=== PATIENT | female | born 1975 | race Caucasian/White ===

== ENCOUNTER 2019-06-19 07:44 | Outpatient (CLI) | payer OTHER, SELFPAY ==
[2019-06-19 08:03] LABS: Hematocrit 37.3 % (37.0-47.0); Hemoglobin 12.8 g/dL (12.0-15.0); Mean Corpuscular HGB Conc 34.3 g/dl (32-36); Mean Corpuscular Volume 90.3 fl (80-100); Mean Platelet Volume 11.2 fl (7.4-10.4); Platelet Count Result 170 k/mm3 (150-375); Red Blood Count 4.13 M/mm3 (4.2-5.4); Red Cell Distribution Width 12.1 % (11.5-14.5); White Blood Count 3.7 K/mm3 (4.5-10.0)
[2019-06-19 08:10] LABS: Add Urine Microscopic? NO; Appearance Urine Clear (Clear); Bilirubin Urine Negative (Negative); Blood Urine Negative (Negative); Color Urine Straw (Yellow); Glucose Urine UA Negative (Negative); Ketones Urine Negative (Negative); Leukocyte Esterase Ur Negative LEU/UL (Negative); Nitrate Urine Negative (Negative); Protein Urine Negative (Negative); Specific Grav Ur 1.009 (1.001-1.035); Urobilinogen Urine Negative mg/dL (<2.0)
[2019-06-19 08:25] LABS: Alanine Aminotransferase 21 U/L (4-35); Alkaline Phosphatase 62 U/L (38-126); Aspartate Amino Transferase 27 U/L (14-36); Bilirubin,Total 0.7 mg/dL (0.2-1.3); Blood Urea Nitrogen 8 mg/dL (7-17); CRP < 0.5 mg/dL (<1.0); Calcium 8.5 mg/dL (8.4-10.2); Carbon Dioxide 25 mmol/L (22-30); Chloride 102 mmol/L (98-107); Estimated Glomerular Filt Rate > 60; Glucose 76 mg/dL (65-105); Potassium 3.6 mmol/L (3.4-5.0); Sodium 140 mmol/L (137-145)
== END 2019-06-19 07:45 | disposition home or self-care (01) ==
PROVIDERS: PCP Family Medicine; Visit Provider Internal Medicine
DX: M35.9 Systemic involvement of connective tissue, unspecified (principal)
CPT/HCPCS: 36415; 80053; 81003; 85027; 86140

== ENCOUNTER 2019-10-08 12:45 | Outpatient (CLI) | payer OTHER, SELFPAY ==
--- NOTE | ~2019-10-08 | XR_ITS ---
EXAMINATION: HAND-TOMAS ARTHRITIS 3+VIEWS DATE: 10/08/2019 12:56 INDICATION: Osteoarthritis with arthralgia at both hands. TECHNIQUE: Posteroanterior, lateral, and oblique views of the left and of the right hands as well as a ballcatchers view of both hands were obtained. COMPARISON: None. FINDINGS: Normal alignment at the bilateral hands and wrists. No fractures. Again seen is a relatively symmetri c pattern of osteoarthritis characterized by minimal to mild nonuniform joint space narrowing at mult iple interphalangeal joints at both hands with distal predominance. No erosions to suggest an inflamm atory arthritis. IMPRESSION: 1. No significant interval change in bilateral minimal to mild polyarticular interphalangeal osteoart hritis with distal predominance. Reviewed, dictated and finalized at location A. IMPRESSION: 1. No significant interval change in bilateral minimal to mild polyarticular in terphalangeal osteoarthritis with distal predominance.
== END 2019-10-08 12:46 | disposition home or self-care (01) ==
LOC: ANHIMG 12:48
PROVIDERS: PCP Family Medicine; Visit Provider Internal Medicine
DX: M19.042 Primary osteoarthritis, left hand (principal); M19.041 Primary osteoarthritis, right hand
CPT/HCPCS: 73130

== ENCOUNTER 2020-01-25 10:04 | Outpatient (CLI) | payer OTHER, SELFPAY ==
[2020-01-25 10:29] LABS: Hematocrit 39.1 % (37.0-47.0); Hemoglobin 13.5 g/dL (12.0-15.0); Mean Corpuscular HGB Conc 34.5 g/dl (32-36); Mean Corpuscular Hemoglobin 31.9 pg (26-34); Mean Corpuscular Volume 92.4 fl (80-100); Mean Platelet Volume 10.8 fl (7.4-10.4); Platelet Count Result 196 k/mm3 (150-375); Red Blood Count 4.23 M/mm3 (4.2-5.4); Red Cell Distribution Width 11.7 % (11.5-14.5)
[2020-01-25 10:32] LABS: Add Urine Microscopic? NO; Appearance Urine Clear (Clear); Bilirubin Urine Negative (Negative); Blood Urine Negative (Negative); Color Urine Straw (Yellow); Glucose Urine UA Negative (Negative); Ketones Urine Negative (Negative); Leukocyte Esterase Ur Negative LEU/UL (Negative); Nitrate Urine Negative (Negative); Protein Urine Negative (Negative); Specific Grav Ur 1.005 (1.001-1.035); Urobilinogen Urine Negative mg/dL (<2.0)
[2020-01-25 11:06] LABS: Erythrocyte Sedimentation Rate 15 mm/hr (0-20)
[2020-01-25 11:15] LABS: Alanine Aminotransferase 17 U/L (4-35); Alkaline Phosphatase 61 U/L (38-126); Anion Gap 8 mmol/L (8-16); Aspartate Amino Transferase 25 U/L (14-36); Blood Urea Nitrogen 9 mg/dL (7-17); CRP < 0.5 mg/dL (<1.0); Calcium 8.8 mg/dL (8.4-10.2); Carbon Dioxide 29 mmol/L (22-30); Chloride 103 mmol/L (98-107); Estimated Glomerular Filt Rate > 60; Glucose 84 mg/dL (65-105); Potassium 3.2 mmol/L (3.4-5.0); Sodium 140 mmol/L (137-145)
== END 2020-01-25 10:05 | disposition home or self-care (01) ==
LOC: ANHLAB 10:05
PROVIDERS: PCP Family Medicine; Visit Provider Internal Medicine
DX: M35.9 Systemic involvement of connective tissue, unspecified (principal); M19.90 Unspecified osteoarthritis, unspecified site
CPT/HCPCS: 36415; 80053; 81003; 85027; 85652; 86140

== ENCOUNTER 2020-03-07 08:51 | Outpatient (CLI) | payer OTHER, SELFPAY ==
[2020-03-07 09:20] LABS: Anion Gap 8 mmol/L (8-16); Blood Urea Nitrogen 9 mg/dL (7-17); Calcium 8.8 mg/dL (8.4-10.2); Carbon Dioxide 26 mmol/L (22-30); Chloride 104 mmol/L (98-107); Estimated Glomerular Filt Rate > 60; Glucose 113 mg/dL (65-105); Potassium 3.7 mmol/L (3.4-5.0); Sodium 138 mmol/L (137-145)
[2020-03-07 10:15] LABS: Free T4 Free Thyroxine 1.19 ng/mL (0.78-2.19)
== END 2020-03-07 08:52 | disposition home or self-care (01) ==
LOC: ANHLAB 08:52
PROVIDERS: PCP Family Medicine; Visit Provider Nurse Practitioner Family
DX: E03.9 Hypothyroidism, unspecified (principal); E87.6 Hypokalemia
CPT/HCPCS: 36415; 80048; 84439; 84443

== ENCOUNTER 2020-03-11 12:14 | Outpatient (CLI) | payer OTHER, SELFPAY ==
--- NOTE | ~2020-03-11 | MM_ITS ---
EXAMINATION: MM screening [facility] BI w jillian HISTORY: Screening mammogram TECHNIQUE: Craniocaudal and mediolateral oblique 3-D tomosynthesis images were obtained and synthetic 2-D images were generated. CAD analysis was submitted and interpreted. COMPARISON: 01/21/2019, 01/05/2018 BREAST PARENCHYMAL COMPOSITION: The breasts are extremely dense, which lowers the sensitivity of mamm ography. FINDINGS: There is no evidence of suspicious mass, calcification, or architectural distortion to sugg est malignancy in either breast. There has been no suspicious interval change. IMPRESSION: 1. No mammographic evidence of malignancy. 2. Recommend routine screening mammography in one year. BI-RADS Category 1: Negative Reviewed, dictated and finalized at location A. REMODELER
== END 2020-03-11 12:15 | disposition home or self-care (01) ==
LOC: ANHIMG 12:16
PROVIDERS: PCP Family Medicine; Visit Provider Obstetrics & Gynecology
DX: Z12.31 Encounter for screening mammogram for malignant neoplasm of breast (principal)
CPT/HCPCS: 77063; 77067

== ENCOUNTER 2020-07-31 16:10 | Outpatient (CLI) | payer OTHER, SELFPAY ==
[2020-07-31 16:58] LABS: Hematocrit 42.7 % (37.0-47.0); Hemoglobin 14.3 g/dL (12.0-15.0); Mean Corpuscular HGB Conc 33.5 g/dl (32-36); Mean Corpuscular Hemoglobin 31.2 pg (26-34); Mean Platelet Volume 11.1 fl (7.4-10.4); Platelet Count Result 223 k/mm3 (150-375); Red Blood Count 4.59 M/mm3 (4.2-5.4); Red Cell Distribution Width 12.1 % (11.5-14.5); White Blood Count 4.1 K/mm3 (4.5-10.0)
[2020-07-31 17:14] LABS: Alanine Aminotransferase 17 U/L (4-35); Albumin Level 4.4 g/dL (3.5-5.1); Alkaline Phosphatase 68 U/L (38-126); Anion Gap 5 mmol/L (8-16); Aspartate Amino Transferase 29 U/L (14-36); Bilirubin,Total 0.5 mg/dL (0.2-1.3); Blood Urea Nitrogen 6 mg/dL (7-17); CRP < 0.5 mg/dL (<1.0); Calcium 8.9 mg/dL (8.4-10.2); Carbon Dioxide 31 mmol/L (22-30); Chloride 107 mmol/L (98-107); Estimated Glomerular Filt Rate > 60; Glucose 94 mg/dL (65-105); Potassium 3.8 mmol/L (3.4-5.0); Sodium 143 mmol/L (137-145)
[2020-07-31 17:14] LABS: Add Urine Microscopic? YES; Appearance Urine Clear (Clear); Bilirubin Urine Negative (Negative); Blood Urine 3+ (Negative); Color Urine Straw (Yellow); Glucose Urine UA Negative (Negative); Ketones Urine Negative (Negative); Leukocyte Esterase Ur Negative LEU/UL (Negative); Mucus Urine Rare /lpf; Nitrate Urine Negative (Negative); Protein Urine Negative (Negative); RBC Urine 0-2 /hpf (0-2); Specific Grav Ur 1.005 (1.001-1.035); Squamous Epithelial Cell Urine Occasional /hpf (Few); Urobilinogen Urine Negative mg/dL (<2.0); WBC Urine 0-3 /hpf
[2020-07-31 17:40] LABS: Erythrocyte Sedimentation Rate 17 mm/hr (0-20)
== END 2020-07-31 16:11 | disposition home or self-care (01) ==
LOC: ANHLAB 16:14
PROVIDERS: PCP Nurse Practitioner Family; Visit Provider Internal Medicine
DX: M35.9 Systemic involvement of connective tissue, unspecified (principal); M19.90 Unspecified osteoarthritis, unspecified site
CPT/HCPCS: 36415; 80053; 81001; 85027; 85652; 86140

== ENCOUNTER 2020-08-21 09:28 | Outpatient (CLI) | payer OTHER, SELFPAY | END 2020-08-21 09:29 | disposition home or self-care (01) | PROVIDERS: PCP Nurse Practitioner Family; Visit Provider Nurse Practitioner Family | DX: E03.9 Hypothyroidism, unspecified (principal) | CPT/HCPCS: 36415; 84443 ==

== ENCOUNTER 2021-01-20 07:50 | Outpatient (CLI) | payer OTHER, SELFPAY ==
--- NOTE | ~2021-01-20 | XR_ITS ---
EXAMINATION: HAND-TOMAS ARTHRITIS 3+VIEWS DATE: 01/20/2021 08:22 INDICATION: Unspecified osteoarthritis of unspecified site TECHNIQUE: Posteroanterior, lateral, and oblique views of the left and of the right hands as well as a ballcatchers view of both hands were obtained. COMPARISON: 10/08/2019 FINDINGS: Normal alignment at the bilateral hands and wrists. No fractures. Again seen is a relatively symmetri c pattern of osteoarthritis characterized by minimal to mild nonuniform joint space narrowing at mult iple interphalangeal joints at both hands with distal predominance. No erosions to suggest an inflamm atory arthritis. Soft tissues are unremarkable. IMPRESSION: 1. No significant interval change in bilateral minimal to mild polyarticular interphalangeal osteoart hritis with distal predominance. Reviewed, dictated and finalized at location A. IMPRESSION: 1. No significant interval change in bilateral minimal to mild polyarticular in terphalangeal osteoarthritis with distal predominance.
== END 2021-01-20 07:51 | disposition home or self-care (01) ==
PROVIDERS: PCP Nurse Practitioner Family; Visit Provider Internal Medicine
DX: M19.90 Unspecified osteoarthritis, unspecified site (principal)
CPT/HCPCS: 73130

== ENCOUNTER 2021-04-19 10:27 | Outpatient (CLI) | payer OTHER, SELFPAY ==
--- NOTE | ~2021-04-19 | MM_ITS ---
EXAMINATION: MM screening [facility] BI w jillian HISTORY: Screening TECHNIQUE: Craniocaudal and mediolateral oblique 3-D tomosynthesis images were obtained and synthetic 2-D images were generated. CAD analysis was submitted and interpreted. COMPARISON: Comparison to multiple prior studies sequentially, with oldest reviewed study dated 01/05. BREAST PARENCHYMAL COMPOSITION: The breasts are extremely dense, which lowers the sensitivity of mamm ography. FINDINGS: There is no evidence of suspicious mass, calcification, or architectural distortion to sugg est malignancy in either breast. There has been no suspicious interval change. IMPRESSION: 1. No mammographic evidence of malignancy. 2. Recommend routine screening mammography in one year. BI-RADS Category 1: Negative Reviewed, dictated and finalized at location A. COMMUNICATIONS SPECIALIST
== END 2021-04-19 10:28 | disposition home or self-care (01) ==
LOC: ANHIMG 10:28
PROVIDERS: PCP Nurse Practitioner Family; Visit Provider Obstetrics & Gynecology
DX: Z12.31 Encounter for screening mammogram for malignant neoplasm of breast (principal)
CPT/HCPCS: 77063; 77067

== ENCOUNTER 2021-08-02 13:46 | Outpatient (CLI) | payer OTHER, SELFPAY ==
[2021-08-02 14:21] LABS: Hematocrit 38.3 % (37.0-47.0); Hemoglobin 13.3 g/dL (12.0-15.0); Mean Corpuscular HGB Conc 34.7 g/dl (32-36); Mean Corpuscular Volume 92.3 fl (80-100); Mean Platelet Volume 10.7 fl (7.4-10.4); Platelet Count Result 235 k/mm3 (150-375); Red Blood Count 4.15 M/mm3 (4.2-5.4); Red Cell Distribution Width 11.8 % (11.5-14.5); White Blood Count 5.2 K/mm3 (4.5-10.0)
[2021-08-02 14:26] LABS: Appearance Urine Clear (Clear); Bilirubin Urine Negative (Negative); Blood Urine 1+ (Negative); Color Urine Yellow (Yellow); Glucose Urine UA Negative (Negative); Ketones Urine Negative (Negative); Leukocyte Esterase Ur 1+ LEU/UL (Negative); Nitrate Urine Negative (Negative); Protein Urine Negative (Negative); Urobilinogen Urine 0.2 mg/dL (<2.0)
[2021-08-02 14:33] LABS: Bacteria Urine Trace /hpf; RBC Urine 0-2 /hpf (0-2); Squamous Epithelial Cell Urine Occasional /hpf (Few); WBC Urine 0-3 /hpf
[2021-08-02 14:34] LABS: Add Urine Microscopic? YES
[2021-08-02 14:40] LABS: Alanine Aminotransferase 18 U/L (4-35); Albumin Level 4.2 g/dL (3.5-5.1); Alkaline Phosphatase 72 U/L (38-126); Anion Gap 7 mmol/L (8-16); Aspartate Amino Transferase 30 U/L (14-36); Bilirubin,Total 0.6 mg/dL (0.2-1.3); Blood Urea Nitrogen 9 mg/dL (7-17); CRP < 0.5 mg/dL (<1.0); Calcium 8.6 mg/dL (8.4-10.2); Carbon Dioxide 27 mmol/L (22-30); Chloride 105 mmol/L (98-107); Estimated Glomerular Filt Rate > 60; Glucose 95 mg/dL (65-110); Potassium 3.7 mmol/L (3.4-5.0); Sodium 139 mmol/L (137-145)
[2021-08-02 15:09] LABS: Erythrocyte Sedimentation Rate 18 mm/hr (0-20)
== END 2021-08-02 13:47 | disposition home or self-care (01) ==
PROVIDERS: PCP Nurse Practitioner Family; Visit Provider Internal Medicine
DX: M35.9 Systemic involvement of connective tissue, unspecified (principal); M19.90 Unspecified osteoarthritis, unspecified site; E03.9 Hypothyroidism, unspecified
CPT/HCPCS: 36415; 80053; 81001; 84443; 85027; 85652; 86140

== ENCOUNTER 2022-01-29 06:58 | Outpatient (CLI) | payer OTHER, SELFPAY ==
[2022-01-29 07:19] LABS: Hematocrit 38.7 % (37.0-47.0); Hemoglobin 13.2 g/dL (12.0-15.0); Mean Corpuscular HGB Conc 34.1 g/dl (32-36); Mean Corpuscular Hemoglobin 31.4 pg (26-34); Mean Corpuscular Volume 92.1 fl (80-100); Mean Platelet Volume 10.5 fl (7.4-10.4); Platelet Count Result 206 k/mm3 (150-375); Red Cell Distribution Width 12.4 % (11.5-14.5); White Blood Count 5.8 K/mm3 (4.5-10.0)
[2022-01-29 07:35] LABS: Cholesterol 151 mg/dL (0-200); HDL Direct 54 mg/dL; Triglycerides 102 mg/dL (<150)
[2022-01-29 07:38] LABS: Alanine Aminotransferase 18 U/L (6-35); Albumin Level 3.8 g/dL (3.5-5.1); Alkaline Phosphatase 52 U/L (38-126); Anion Gap 7 mmol/L (8-16); Aspartate Amino Transferase 20 U/L (14-36); Bilirubin,Total 0.7 mg/dL (0.2-1.3); Blood Urea Nitrogen 8 mg/dL (7-17); CRP < 0.5 mg/dL (<1.0); Calcium 8.4 mg/dL (8.4-10.2); Carbon Dioxide 30 mmol/L (22-30); Chloride 103 mmol/L (98-107); Estimated Glomerular Filt Rate > 60; Glucose 94 mg/dL (65-110); Potassium 3.5 mmol/L (3.4-5.0); Sodium 140 mmol/L (137-145)
[2022-01-29 07:45] LABS: LDL Cholesterol Direct 83 mg/dL
[2022-01-29 07:49] LABS: Add Urine Microscopic? YES; Amorphous Sediment Urine Moderate; Appearance Urine Cloudy (Clear); Bilirubin Urine Negative (Negative); Blood Urine Negative (Negative); Color Urine Yellow (Yellow); Glucose Urine UA Negative (Negative); Ketones Urine Negative (Negative); Leukocyte Esterase Ur Negative LEU/UL (Negative); Nitrate Urine Negative (Negative); Protein Urine Negative (Negative); Squamous Epithelial Cell Urine Occasional /hpf (Few); Urobilinogen Urine Negative mg/dL (<2.0); WBC Urine 0-3 /hpf
[2022-01-29 07:49] LABS: Erythrocyte Sedimentation Rate 7 mm/hr (0-20)
== END 2022-01-29 06:59 | disposition home or self-care (01) ==
PROVIDERS: PCP Family Medicine; Referring Provider Internal Medicine; Visit Provider Nurse Practitioner Family
DX: Z13.220 Encounter for screening for lipoid disorders (principal); E03.9 Hypothyroidism, unspecified; M35.9 Systemic involvement of connective tissue, unspecified
CPT/HCPCS: 36415; 80053; 80061; 81001; 84443; 85027; 85652; 86140

== ENCOUNTER 2022-06-08 16:02 | Outpatient (CLI) | payer OTHER, SELFPAY ==
--- NOTE | ~2022-06-08 | MM_ITS ---
EXAMINATION: MM screening [facility] BI w jillian HISTORY: Screening mammogram TECHNIQUE: Craniocaudal and mediolateral oblique 3-D tomosynthesis images were obtained and synthetic 2-D images were generated. CAD analysis was submitted and interpreted. COMPARISON: 04/19/2021, 03/11/2020, 01/21/2019 bilateral screening mammogram examinations BREAST PARENCHYMAL COMPOSITION: The breasts are extremely dense, which lowers the sensitivity of mamm ography. FINDINGS: There is no evidence of suspicious mass, calcification, or architectural distortion to sugg est malignancy in either breast. There has been no suspicious interval change. IMPRESSION: 1. No mammographic evidence of malignancy. 2. Recommend routine screening mammography in one year. BI-RADS Category 1: Negative Reviewed, dictated and finalized at location A. ER PLUMBER
== END 2022-06-08 16:03 | disposition home or self-care (01) ==
PROVIDERS: PCP Family Medicine; Visit Provider Obstetrics & Gynecology
DX: Z12.31 Encounter for screening mammogram for malignant neoplasm of breast (principal)
CPT/HCPCS: 77063; 77067

== ENCOUNTER 2022-08-01 08:28 | Outpatient (CLI) | payer OTHER, SELFPAY ==
[2022-08-01 08:47] LABS: Hematocrit 40.3 % (37.0-47.0); Hemoglobin 13.6 g/dL (12.0-15.0); Mean Corpuscular HGB Conc 33.7 g/dl (32-36); Mean Corpuscular Hemoglobin 31.8 pg (26-34); Mean Corpuscular Volume 94.2 fl (80-100); Mean Platelet Volume 9.9 fl (7.4-10.4); Platelet Count Result 233 k/mm3 (150-375); Red Blood Count 4.28 M/mm3 (4.2-5.4); Red Cell Distribution Width 12.6 % (11.5-14.5); White Blood Count 3.5 K/mm3 (4.5-10.0)
[2022-08-01 09:02] LABS: Alanine Aminotransferase 24 U/L (6-35); Albumin Level 3.9 g/dL (3.5-5.1); Alkaline Phosphatase 69 U/L (38-126); Anion Gap 4 mmol/L (8-16); Aspartate Amino Transferase 30 U/L (14-36); Blood Urea Nitrogen 8 mg/dL (7-17); CRP < 0.5 mg/dL (<1.0); Calcium 8.3 mg/dL (8.4-10.2); Carbon Dioxide 28 mmol/L (22-30); Chloride 107 mmol/L (98-107); Estimated Glomerular Filt Rate > 60; Glucose 98 mg/dL (65-110); Potassium 3.9 mmol/L (3.4-5.0); Sodium 139 mmol/L (137-145)
[2022-08-01 09:21] LABS: Appearance Urine Clear (Clear); Bacteria Urine None Seen /hpf; Bilirubin Urine Negative (Negative); Blood Urine 2+ (Negative); Color Urine Yellow (Yellow); Glucose Urine UA Negative (Negative); Ketones Urine Negative (Negative); Leukocyte Esterase Ur Negative LEU/UL (Negative); Nitrate Urine Negative (Negative); Non Pathogenic Casts 0-2; Protein Urine Negative (Negative); RBC Urine 0-2 /hpf (0-2); Specific Grav Ur 1.011 (1.001-1.035); Squamous Epithelial Cell Urine None seen /hpf (Few); Urobilinogen Urine 0.2 mg/dL (<2.0); WBC Urine 0-5 /hpf; pH Urine 5.5 (5.0-9.0)
[2022-08-01 09:43] LABS: Erythrocyte Sedimentation Rate 17 mm/hr (0-20)
[2022-08-01 10:09] LABS: Add Urine Microscopic? YES
== END 2022-08-01 08:29 | disposition home or self-care (01) ==
PROVIDERS: PCP Family Medicine; Referring Provider Internal Medicine; Visit Provider Nurse Practitioner Family
DX: M35.9 Systemic involvement of connective tissue, unspecified (principal); M19.90 Unspecified osteoarthritis, unspecified site; E03.9 Hypothyroidism, unspecified
CPT/HCPCS: 36415; 80053; 81001; 84443; 85027; 85652; 86140

== ENCOUNTER 2023-01-21 07:22 | Outpatient (CLI) | payer OTHER, SELFPAY ==
[2023-01-21 07:42] LABS: Hematocrit 40.1 % (37.0-47.0); Hemoglobin 13.4 g/dL (12.0-15.0); Mean Corpuscular HGB Conc 33.4 g/dl (32-36); Mean Corpuscular Hemoglobin 31.3 pg (26-34); Mean Corpuscular Volume 93.7 fl (80-100); Mean Platelet Volume 10.3 fl (7.4-10.4); Platelet Count Result 214 k/mm3 (150-375); Red Blood Count 4.28 M/mm3 (4.2-5.4); Red Cell Distribution Width 11.9 % (11.5-14.5); White Blood Count 5.6 K/mm3 (4.5-10.0)
[2023-01-21 07:46] LABS: Appearance Urine Cloudy (Clear); Bacteria Urine None Seen /hpf; Bilirubin Urine Negative (Negative); Blood Urine Negative (Negative); Color Urine Yellow (Yellow); Glucose Urine UA Negative (Negative); Ketones Urine Negative (Negative); Leukocyte Esterase Ur Negative LEU/UL (Negative); Nitrate Urine Negative (Negative); Non Pathogenic Casts 0-2; Protein Urine Negative (Negative); RBC Urine 0-2 /hpf (0-2); Specific Grav Ur 1.009 (1.001-1.035); Squamous Epithelial Cell Urine Few /hpf (Few); WBC Urine 0-5 /hpf; pH Urine 7.5 (5.0-9.0)
[2023-01-21 07:49] LABS: Add Urine Microscopic? YES
[2023-01-21 08:03] LABS: Alanine Aminotransferase 19 U/L (6-35); Albumin Level 3.9 g/dL (3.5-5.1); Alkaline Phosphatase 48 U/L (38-126); Anion Gap 5 mmol/L (8-16); Aspartate Amino Transferase 22 U/L (14-36); Bilirubin,Total 0.8 mg/dL (0.2-1.3); Blood Urea Nitrogen 6 mg/dL (7-17); CRP < 0.5 mg/dL (<1.0); Calcium 8.5 mg/dL (8.4-10.2); Carbon Dioxide 31 mmol/L (22-30); Chloride 104 mmol/L (98-107); Estimated Glomerular Filt Rate > 60; Glucose 90 mg/dL (65-110); Potassium 3.6 mmol/L (3.4-5.0); Sodium 140 mmol/L (137-145)
== END 2023-01-21 07:23 | disposition home or self-care (01) ==
LOC: ANHLAB 07:23
PROVIDERS: PCP Family Medicine; Visit Provider Internal Medicine
DX: M35.9 Systemic involvement of connective tissue, unspecified (principal); M19.90 Unspecified osteoarthritis, unspecified site
CPT/HCPCS: 36415; 80053; 81001; 85027; 86140

== ENCOUNTER 2023-02-15 13:45 | Outpatient (CLI) | payer OTHER, SELFPAY ==
[2023-02-15 20:48] LABS: Alanine Aminotransferase 20 U/L (6-35); Albumin Level 4.3 g/dL (3.5-5.1); Alkaline Phosphatase 62 U/L (38-126); Anion Gap 9 mmol/L (8-16); Aspartate Amino Transferase 34 U/L (14-36); Bilirubin,Total 1.3 mg/dL (0.2-1.3); Blood Urea Nitrogen 9 mg/dL (7-17); Calcium 8.9 mg/dL (8.4-10.2); Carbon Dioxide 30 mmol/L (22-30); Chloride 102 mmol/L (98-107); Estimated Glomerular Filt Rate > 60; Glucose 93 mg/dL (65-110); Potassium 2.4 mmol/L (3.4-5.0); Sodium 141 mmol/L (137-145)
[2023-02-18 15:53] LABS: Vitamin D 1,25 (OH)2 Total 40 pg/mL (18-72); Vitamin D2 1,25 (OH)2 <8 pg/mL; Vitamin D3 1,25 (OH)2 40 pg/mL
== END 2023-02-15 13:46 | disposition home or self-care (01) ==
LOC: ANHGOSHLAB 13:47
PROVIDERS: PCP Family Medicine; Visit Provider Nurse Practitioner Family
DX: E03.9 Hypothyroidism, unspecified (principal); E55.9 Vitamin D deficiency, unspecified; R00.0 Tachycardia, unspecified
CPT/HCPCS: 36415; 80053; 82652; 84443

== ENCOUNTER 2023-02-15 21:15 | Observation (INO) | payer OTHER, SELFPAY ==
--- NOTE | ~2023-02-15 | CT_ITS ---
EXAMINATION: CT abdomen pelvis wo con DATE: 02/17/2023 16:14 INDICATION: Concern for sterile secreting tumor TECHNIQUE: Computed tomography (CT) of the abdomen and pelvis was performed without intravenous contr ast. The dose-length product (DLP) was 206.83 mGy-cm. Automated exposure control and iterative recons truction technique were employed. COMPARISON: None FINDINGS: The lung bases are clear. The heart size is normal. The liver, spleen, pancreas, gallbladde r, and left adrenal gland are normal. There is a 2.2 x 1.9 cm mass of the right adrenal gland. The ki dneys are unremarkable. No pathologically enlarged abdominal or pelvic lymph nodes are identified. No free intraperitoneal gas or evidence of bowel obstruction. There is a large volume of stool in the r ectum. The appendix is normal. IMPRESSION: 1. Indeterminate right adrenal mass which may reflect an adenoma. Consider further evaluation by MRI without and with contrast. Reviewed, dictated and finalized at location F. IMPRESSION: 1. Indeterminate right adrenal mass which may reflect an adenoma. Consider furt her evaluation by MRI without and with contrast.
--- NOTE | ~2023-02-15 | MR_ITS ---
EXAMINATION: MR abdomen wo/w con DATE: 02/18/2023 07:13 INDICATION: Right adrenal mass. TECHNIQUE: Magnetic resonance imaging (MRI) of the abdomen was performed without and with 11 mL Multi Igor intravenous contrast. COMPARISON: CT abdomen and pelvis 11/17/2022 FINDINGS: The liver, gallbladder, spleen, pancreas, and left adrenal gland are normal. There is a 2.1 cm mass i n right adrenal gland containing microscopic fat, consistent with an adenoma. There is a 5 mm cyst in right kidney. Left kidney is normal. There are no dilated loops of bowel. There are no pathologicall y enlarged lymph nodes. There is no free intraperitoneal fluid. IMPRESSION: 1. 2.1 cm right adrenal adenoma. Reviewed, dictated and finalized at location E.
[2023-02-15 21:23] VITALS: PULSE 77; RESP 20; TEMP 36.6; O2SAT 100
--- NOTE | 2023-02-15 21:28 | ECG_ITS ---
Measurements Intervals [place] Rate: 64 P: 66 NM: 148 QRS: 65 QRSD: 86 T: 66 QT: 415 QTc: 430 Interpretive Statements SINUS RHYTHM NO PREVIOUS ECG AVAILABLE FOR COMPARISON Electronically Signed On 02-16-2023 12:55:50 CDT by Negra Bernard M.D.
[2023-02-15 22:18] VITALS: BP 179/102; PULSE 68; RESP 16; O2SAT 100
--- NOTE | 2023-02-15 22:54 | ED.RECABL ---
HPI - Recheck/Abnormal Lab/Rx General Chief Complaint: Recheck/Abnormal Lab/Rx <Ruth Li PA-C - Last Filed: 02/16/23 03:39> Stated Complaint: low potassium, PCP called <MAC Crowell Last Filed: 02/16/23 03:39> Time Seen by Provider: 02/15/23 22:42 <MAC Crowell Last Filed: 02/16/23 03:39> Source: patient and old records reviewed <MAC Crowell Last Filed: 02/16/23 03:39> Mode of arrival: ambulatory <MAC Crowell Last Filed: 02/16/23 03:39> Limitations: no limitations <MAC Crowell Last Filed: 02/16/23 03:39> History of Present Illness HPI narrative: Patient is a 47-year-old female who presents ED with report of abnormal labs. Patient reports over the last 2 days, she has had intermittent episodes of tachycardia. She states at home her heart rate has been anywhere from 120s to 130s beats per minutes. Episodes are intermittent. No significant aggravating or inciting factors. She followed up with her primary care doctor today and had outpatient blood work which showed hypokalemia at 2.4. She was then sent here for further evaluation. Patient denies previous issues with hypokalemia. She has been eating and drinking normally. Denies nausea, vomiting, diarrhea, dizziness, lightheadedness. She denies associated chest pain or shortness of breath with the episodes of palpitations. Otherwise denies any change in her normal lifestyle over the last few days. <MAC Crowell Last Filed: 02/16/23 03:39> Related Data Home Medications: Home Medications Medication Instructions Recorded Confirmed norgestimate-ethinyl estradiol 1 tablet PO DAILY 03/01/19 02/16/23 0.18 mg/0.215mg/0.25mg-35 mcg(28)tablet (Ortho Tri-Cyclen (28)) <MAC Crowell Last Filed: 02/16/23 03:39> Allergies/Adverse Reactions: Allergies Allergy/AdvReac Type Severity Reaction Status Date / Time Penicillins Allergy Unknown Joint Pain Verified 02/16/23 10:07 <Ruth Li PA-C - Last Filed: 02/16/23 03:39> Review of Systems Review of Systems: CONSTITUTIONAL: Denies fever, chills, or sweats. ENT: Denies rhinorrhea, congestion, sore throat. CARDIOVASCULAR: See HPI. RESPIRATORY: Denies cough or dyspnea. GASTROINTESTINAL: Denies abdominal pain, nausea, vomiting, or diarrhea. GENITOURINARY: Denies dysuria or hematuria. MUSCULOSKELETAL: Denies back pain, joint pain, or myalgia. NEUROLOGIC: Denies headache, numbness, or weakness. <Ruth Li PA-C - Last Filed: 02/16/23 03:39> All systems reviewed & are unremarkable except as noted in HPI and below <Ruth Li PA-C - Last Filed: 02/16/23 03:39> [facility] Past Medical History Medical History: Medical History Hypothyroidism Lupus <Ruth Li PA-C - Last Filed: 02/16/23 03:39> Surgical History Surgical History: Surgical History Hx of thyroidectomy (~2014) left thyroidectomy <Ruth Li PA-C - Last Filed: 02/16/23 03:39> Family History Family History: Family History Mother Depression Hypertension Family history of allergic disorder Family history of hypothyroidism Family history of thyroid disease Father Family history of malignant neoplasm of thyroid, Onset Age: 70 Family history of malignant neoplasm, Onset Age: 70 <Ruth Li PA-C - Last Filed: 02/16/23 03:39> Social History Social History: Social History 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 Never alcohol or drug use. Smoking status: Never smoker Alcohol intake: never Substance use: n
[2023-02-15 23:12] LABS: Basophils Percent Auto 0.4 % (0.2-1.2); Eosinophils Absolute Auto 0.1 K/mm3 (0-0.3); Eosinophils Percent Auto 0.9 % (0-4.4); Hematocrit 41.6 % (37.0-47.0); Hemoglobin 14.6 g/dL (12.0-15.0); Immature Granulocyte Absolute 0.04 K/mm3 (0.00-0.031); Immature Granulocyte Percent A 0.5 % (0-0.5); Lymphocytes Absolute Auto 1.63 K/mm3 (0.9-3.2); Lymphocytes Percent Auto 20.3 % (18.3-44.2); Mean Corpuscular HGB Conc 35.1 g/dl (32-36); Mean Corpuscular Hemoglobin 31.3 pg (26-34); Mean Corpuscular Volume 89.1 fl (80-100); Mean Platelet Volume 9.9 fl (7.4-10.4); Monocytes Absolute Auto 0.8 K/mm3 (0.1-0.6); Monocytes Percent Auto 10.2 % (2.6-8.5); Neutrophils Absolute Auto 5.4 K/mm3 (1.3-6.7); Neutrophils Percent Auto 67.7 % (45.5-73.1); Platelet Count Result 222 k/mm3 (150-375); Red Blood Count 4.67 M/mm3 (4.2-5.4); Red Cell Distribution Width 12.3 % (11.5-14.5)
[2023-02-15 23:31] LABS: Lipase 107 U/L (23-300); Magnesium 2.2 mg/dL (1.6-2.3)
[2023-02-15 23:33] LABS: Alanine Aminotransferase 19 U/L (6-35); Alkaline Phosphatase 54 U/L (38-126); Anion Gap 5 mmol/L (8-16); Aspartate Amino Transferase 24 U/L (14-36); Bilirubin,Total 1.7 mg/dL (0.2-1.3); Blood Urea Nitrogen 11 mg/dL (7-17); Calcium 8.7 mg/dL (8.4-10.2); Carbon Dioxide 29 mmol/L (22-30); Chloride 105 mmol/L (98-107); Estimated CRCL calculation 72 ml/min; Estimated Glomerular Filt Rate > 60; Glucose 110 mg/dL (65-110); Potassium 2.7 mmol/L (3.4-5.0); Sodium 139 mmol/L (137-145)
[2023-02-16] VITALS (12 sets, daily range): BP systolic 157–187; BP diastolic 88–102; PULSE 56–68; RESP 14–18; TEMP 36.6–36.9; O2SAT 97–100; BMI 19.9
[2023-02-16 00:48] LABS: Troponin I < 0.012 ng/mL (0.000-0.034)
[2023-02-16] MEDS: POTASSIUM CHLORIDE INJ 40 MEQ in SODIUM CHLORIDE 0.9% IV 500 ML 130 MEQ IVPB ×2 (00:49→12:22)
[2023-02-16] MEDS: SODIUM CHLORIDE 0.9% IV 1,000 ML 999 ML IV CONT (00:53)
[2023-02-16] MEDS: POTASSIUM CHLORIDE 20 MEQ ER TABLET 40 MEQ PO (00:53)
[2023-02-16 02:23] LABS: Free T4 Free Thyroxine 1.52 ng/mL (0.78-2.19)
[2023-02-16 06:25] LABS: Anion Gap 2 mmol/L (8-16); Blood Urea Nitrogen 9 mg/dL (7-17); Calcium 8.1 mg/dL (8.4-10.2); Carbon Dioxide 28 mmol/L (22-30); Chloride 109 mmol/L (98-107); Estimated CRCL calculation 72 ml/min; Estimated Glomerular Filt Rate > 60; Glucose 83 mg/dL (65-110); Potassium 3.5 mmol/L (3.4-5.0); Sodium 139 mmol/L (137-145)
--- NOTE | 2023-02-16 08:56 | PM.IMHP ---
H&P: HPI History of Present Illness Date/Time: 02/16/23 08:56 Chief Complaint: Heart palpitations, hypokalemia Narrative: This is a 47 year old female with past medical history of hypothyroidism and lupus presented to the ED due to heart palpitations and low potassium. She had recently been seen by her primary care provider yesterday due to feeling like her heart is racing. She had been feeling like this for approximately 2 days. She had been given propranolol by her PCP and had taken 1 dose. After she left her PCPs office she had labs drawn and at that time they found her potassium to be 2.4. She was called by her PCP and advised to be seen in the ED for potassium supplementation. EKG in the hospital did not reveal any T wave abnormalities and patient had sinus rhythm. She denied any chest pain associated with heart palpitations. She has no history of hypertension although she did begin to feel pains in the back of her head the see associated with anxiety. She denies any diarrhea, vomiting or use of diuretics. Her repeat potassium was 2.7 in the ED and she was given 80 mEq of potassium chloride with her recheck potassium being 3.5. Admitted for close monitoring of potassium. 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 Never alcohol or drug use. Smoking status: Never smoker Alcohol intake: never Substance use: never Substance use type: does not use Lack of Transportation: No Lack of Food: Never True Current Housing: I Have Housing Concerned About Future Housing: No Difficulty Paying Gas/Electric Bills: No Difficulty Paying for Meds: No Currently Unemployed: No Education: Master's Degree or Higher Difficulty w/ Childcare or Family Care: No Living arrangements: with family Occupation/Education: occupation Additional occupation/education comments: Pharmacist Gender identity (if verbalized by the patient): Female Spiritual care concerns: No Agree to blood products: Yes Meds Home Medications and Allergies Home Medications Medication Instructions Recorded Confirmed Type norgestimate-ethinyl estradiol 1 tablet PO DAILY 03/01/19 02/16/23 History 0.18 mg/0.215mg/0.25mg-35 mcg(28)tablet (Ortho Tri-Cyclen (28)) levothyroxine 100 mcg tablet 100 mcg PO DAILY #90 tabs 05/26/22 02/16/23 Rx hydroxychloroquine 200 mg tablet 300 mg PO DAILY #45 tabs 02/02/23 02/16/23 Rx propranolol 60 mg capsule,24 60 mg PO DAILY #90 caps 02/15/23 02/16/23 Rx hr,extended release Allergies Allergy/AdvReac Type Severity Reaction Status Date / Time Penicillins Allergy Unknown Joint Pain Verified 02/16/23 10:07 Vital Signs Vital Signs - 24 hr 02/15/23 21:23 02/15/23 22:18 02/16/23 00:58 Temperature 97.9 F Pulse Rate 77 68 60 Respiratory Rate 20 16 14 Blood Pressure 179/102 H 179/102 H Pulse Oximetry 100 100 100 Oxygen Delivery Room Air 02/16/23 04:07 02/16/23 06:55 Temperature Pulse Rate 66 65 Respiratory Rate 17 14 Blood Pressure 157/93 H 175/97 H Pulse Oximetry 99 99 Oxygen Delivery Exam Narrative: GENERAL: Comfortable, no acute distress HENMT: moist mucous membranes EYES: EOM intact b
--- NOTE | 2023-02-16 09:35 | ADMGEN ---
This patient, Maida Riley, was admitted to Medical Room 247-. Patient/family oriented to hospital policies and general routines including ID bracelet, bed and alarms, visiting hours, pain management, procedures, bathroom and other care routines, personal items, smoking policy, room service/diet, and visiting hours. Information on how to activate the Rapid Response Team has been discussed. Patient/Family are encouraged to report perceived risks to care and to ask questions if they do not understand what they are told or what they should do.
[2023-02-16 12:04] LABS: Potassium 3.3 mmol/L (3.4-5.0)
[2023-02-16] MEDS: LEVOTHYROXINE SODIUM 100 MCG TABLET PO (14:49)
[2023-02-16 18:01] LABS: Potassium 3.7 mmol/L (3.4-5.0)
[2023-02-17] VITALS (10 sets, daily range): BP systolic 150–156; BP diastolic 85–96; PULSE 54–102; RESP 16–18; TEMP 37.1–37.2; O2SAT 90–99
[2023-02-17 00:27] LABS: Potassium 3.7 mmol/L (3.4-5.0)
[2023-02-17] MEDS: LEVOTHYROXINE SODIUM 100 MCG TABLET PO (05:33)
[2023-02-17 05:49] LABS: Hematocrit 44.6 % (37.0-47.0); Hemoglobin 15.2 g/dL (12.0-15.0); Mean Corpuscular HGB Conc 34.1 g/dl (32-36); Mean Corpuscular Hemoglobin 31.1 pg (26-34); Mean Corpuscular Volume 91.4 fl (80-100); Mean Platelet Volume 9.4 fl (7.4-10.4); Platelet Count Result 180 k/mm3 (150-375); Red Blood Count 4.88 M/mm3 (4.2-5.4); Red Cell Distribution Width 12.2 % (11.5-14.5); White Blood Count 6.4 K/mm3 (4.5-10.0)
[2023-02-17 06:00] LABS: Alanine Aminotransferase 21 U/L (6-35); Alkaline Phosphatase 53 U/L (38-126); Anion Gap 7 mmol/L (8-16); Aspartate Amino Transferase 24 U/L (14-36); Bilirubin,Total 1.6 mg/dL (0.2-1.3); Blood Urea Nitrogen 11 mg/dL (7-17); Calcium 8.7 mg/dL (8.4-10.2); Carbon Dioxide 26 mmol/L (22-30); Chloride 104 mmol/L (98-107); Estimated CRCL calculation 75 ml/min; Estimated Glomerular Filt Rate > 60; Glucose 90 mg/dL (65-110); Magnesium 2.1 mg/dL (1.6-2.3); Potassium 3.8 mmol/L (3.4-5.0); Sodium 137 mmol/L (137-145)
--- NOTE | 2023-02-17 07:15 | PM.DS ---
DS: Discharge Diagnosis Discharge Diagnosis (1) Hypokalemia: Code(s): E87.6 - Hypokalemia Status: Acute (2) Rapid palpitations: Code(s): R00.2 - Palpitations Status: Acute (3) Hypothyroidism: Qualifiers: Hypothyroidism type: acquired Qualified Code(s): E03.9 - Hypothyroidism, unspecified Code(s): E03.9 - Hypothyroidism, unspecified Status: Chronic (4) Lupus: Code(s): M32.9 - Systemic lupus erythematosus, unspecified Status: Acute DS: Summary Time Spent with Patient Time attestation: Total time spent providing and/or coordinating discharge services: Exam Narrative: GENERAL: Comfortable, no acute distress HENMT: moist mucous membranes EYES: EOM intact b/l NECK: no lymphadenopathy RESPIRATORY: clear to auscultation CARDIO: RRR GI: soft, nontender, bowel sounds present SKIN: no rashes EXTREMITIES: no edema, redness or tenderness DS: Data Data Completed and Pending Labs on day of discharge: Labs from last 24 hours 02/17/23 02/17/23 02/16/23 05:38 00:10 17:32 WBC 6.4 RBC 4.88 Hgb 15.2 H Hct 44.6 MCV 91.4 MCH 31.1 MCHC 34.1 RDW 12.2 Plt Count 180 MPV 9.4 Sodium 137 Potassium 3.8 3.7 3.7 Chloride 104 Carbon Dioxide 26 Anion Gap 7 L BUN 11 Creatinine 0.70 Estim Creat Clear Calc 75 Estimated GFR > 60 Glucose 90 Calcium 8.7 Magnesium 2.1 Total Bilirubin 1.6 H AST 24 ALT 21 Alkaline Phosphatase 53 Total Protein 7.0 Albumin 4.0 02/16/23 11:47 WBC RBC Hgb Hct MCV MCH MCHC RDW Plt Count MPV Sodium Potassium 3.3 L Chloride Carbon Dioxide Anion Gap BUN Creatinine Estim Creat Clear Calc Estimated GFR Glucose Calcium Magnesium Total Bilirubin AST ALT Alkaline Phosphatase Total Protein Albumin Discharge Plan Discharge Attending physician on discharge: Brooke Choi Discharging Clinician: Bharti Robbins Patient Disposition: Home, Self-Care Activity: as tolerated Diet: regular Discharge Instructions: Repeat labes in 5-7 days. Return to the ED or contact PCP if you develop chest pain, prolonged tachycardia, shortness of breath, lightheadedness, dizziness, syncope or fever >100.4. Discharge disposition: Take medications as prescribed Monitor blood pressures Avoid social areas, you wear a mask when in social settings Encouraged to continue with yearly vaccinations Follow-up with the primary care physician within 1-2 weeks Thank you for [facility] for your healthcare needs Patient Instructions: Antibiotic Form Stand Alone Forms: General Discharge Information Follow-up/Referrals: Eliz Hurd MD [Primary Care Provider] - Discharge Medications: Continued norgestimate-ethinyl estradiol [Ortho Tri-Cyclen (28)] 0.18/0.215/0.25 mg-35 mcg (28) tablet 1 tablet PO DAILY levothyroxine 100 mcg tablet 100 mcg PO DAILY Qty: 90 3RF hydroxychloroquine 200 mg tablet 300 mg PO DAILY Qty: 45 6RF propranolol 60 mg capsule,extended release 24 hr 60 mg PO DAILY Qty: 90 1RF Other Ambulatory Orders: Comprehensive Metabolic Panel (Routine) Timeframe: 1 Week Location: Determined by Patient Ordered By: Bharti Robbins Date of admission: 02/16/23 03:27 Primary Care Provider: Eliz Hurd Admitting Provider: Stewart Hector V. Attending physician on admission: Stewart Hector V. Condition: Stable
--- NOTE | 2023-02-17 08:15 | ECG_ITS ---
Measurements Intervals [place] Rate: 89 P: 71 MO: 150 QRS: 62 QRSD: 86 T: 71 QT: 368 QTc: 449 Interpretive Statements SINUS RHYTHM WITHIN NORMAL LIMITS COMPARED TO ECG 02/15/2023 21:32:25 NO SIGNIFICANT CHANGES Electronically Signed On 02-17-2023 15:08:32 CDT by Lucas Bowers M.D.
--- NOTE | 2023-02-17 08:20 | PM.IMPN ---
Subjective Date/time seen: 02/17/23 08:20 Objective Data Vital Signs Vital Signs: Vital Signs - 24 hr 02/16/23 09:46 02/16/23 10:29 02/16/23 11:05 Temperature 98.5 F Pulse Rate 67 68 66 Respiratory Rate 16 16 Blood Pressure 187/91 H Pulse Oximetry 99 99 Oxygen Delivery Room Air 02/16/23 12:01 02/16/23 13:34 02/16/23 16:00 Temperature 97.8 F Pulse Rate 56 L 64 63 Respiratory Rate 16 Blood Pressure 163/88 H Pulse Oximetry 99 Oxygen Delivery 02/16/23 20:01 02/16/23 21:48 02/16/23 20:00 Temperature 98.0 F Pulse Rate 63 57 L Respiratory Rate 18 Blood Pressure 160/91 H Pulse Oximetry 97 Oxygen Delivery Room Air 02/17/23 00:00 02/17/23 04:00 02/17/23 06:00 Temperature 98.7 F Pulse Rate 55 L 54 L 71 Respiratory Rate 18 Blood Pressure 156/96 H Pulse Oximetry 99 Oxygen Delivery 02/16/23 10:07 Temperature 98.5 F Pulse Rate 67 Respiratory Rate 16 Blood Pressure 187/91 H Pulse Oximetry Oxygen Delivery Intake/Output Intake/Output: Intake & Output 02/14/23 02/15/23 02/16/23 02/17/23 23:59 23:59 23:59 23:59 Intake Total 2470 350 Output Total 1700 300 Balance 770 50 Meds/Results Medications: Active Medications Generic Name Dose Route Start Last Admin Trade Name Freq PRN Reason Stop Dose Admin Hydroxychloroquine Sulfate 300 mg 02/17/23 09:00 Hydroxychloroquine Sulfate 100 Mg Tablet PO DAILY [facility] Levothyroxine Sodium 100 mcg 02/16/23 15:00 02/17/23 05:33 Levothyroxine Sodium 100 Mcg Tablet PO 100 mcg DAILY@0630 [facility] Administration Miscellaneous Information 1 each 02/16/23 00:01 02/16/23 12:22 Ortho Tri-Cyclen Nonformulary, Can Patient Use From Home Or Hold Until Discharge? XX 03/18/23 00:00 Not Given CLARIFY LIANNA Non-Formulary Medication 1 tablet 02/17/23 09:00 Norgestimate-Ethinyl Estradiol [Ortho Tri-Cyclen (28)] PO 03/19/23 08:59 DAILY LIANNA Propranolol HCl 60 mg 02/17/23 09:00 Propranolol Hcl 60 Mg Capsule Cr PO DAILY [facility] Labs Labs: Laboratory Results - last 24 hr 02/16/23 02/16/23 02/17/23 11:47 17:32 00:10 WBC RBC Hgb Hct MCV MCH MCHC RDW Plt Count MPV Sodium Potassium 3.3 L 3.7 3.7 Chloride Carbon Dioxide Anion Gap BUN Creatinine Estim Creat Clear Calc Estimated GFR Glucose Calcium Magnesium Total Bilirubin AST ALT Alkaline Phosphatase Total Protein Albumin 02/17/23 05:38 WBC 6.4 RBC 4.88 Hgb 15.2 H Hct 44.6 MCV 91.4 MCH 31.1 MCHC 34.1 RDW 12.2 Plt Count 180 MPV 9.4 Sodium 137 Potassium 3.8 Chloride 104 Carbon Dioxide 26 Anion Gap 7 L BUN 11 Creatinine 0.70 Estim Creat Clear Calc 75 Estimated GFR > 60 Glucose 90 Calcium 8.7 Magnesium 2.1 Total Bilirubin 1.6 H AST 24 ALT 21 Alkaline Phosphatase 53 Total Protein 7.0 Albumin 4.0
[2023-02-17] MEDS: PROPRANOLOL HCL 60 MG CAPSULE CR PO (09:09)
--- NOTE | 2023-02-17 14:06 | PM.CNCAR ---
Assessment and Plan Assessment and plan (1) Rapid palpitations: Code(s): R00.2 - Palpitations Status: Acute (2) Lupus: Code(s): M32.9 - Systemic lupus erythematosus, unspecified Status: Acute Plan This is a 47-year-old lady without any prior cardiac problems I am seeing her because of sinus tachycardia. She has no other cardiac symptoms or findings on physical exam. I do not believe there is any further cardiac evaluation the needs to take place her keep her in the hospital. Her clinical presentation however is in my opinion highly suggestive of hyperaldosteronism. The degree of hypertension that she has and significant hypokalemia is commonly seen and a Hallmark of this diagnosis. She should have an outpatient workup for hyperaldosteronism in my opinion this will be deferred to her primary team as it is not a cardiac problem. Lucas Bowers MD [facility] History of Present Illness History of Present Illness Consult date/time: 02/17/23 14:06 Reason For Visit: hypokalemia,palpitations Narrative: This is a 47-year-old woman I am seeing at the request of the hospitalist because of tachycardia. She was admitted to this hospital on Monday at the request of her PCP because of hypokalemia. She was reporting feeling unwell with symptoms of rapid heart beating and palpitations that have been going on for at least a week or 2. She describes symptoms of irregular forceful beating of her heart it does not feel air attic or irregular she has no history of syncope or presyncope no history of previous cardiac problems. She denies any chest pain shortness of breath orthopnea PND or edema. Since being in the hospital on Monday her electrocardiograms as well as her telemetry show sinus rhythm/sinus tachycardia. She saw her primary care physician in the office apparently on Monday some lab work was done in which she was noted to have a potassium of 2.7 she was sent to the emergency room. The patient has had IV potassium repletion and is seeing me in consultation. Also of note is the patient has recently become hypertensive that has never been the case before systolic blood pressures are running in the 150-160 range since she has been in the hospital. Her 12 lead electrocardiogram is otherwise normal. She does have a diagnosis of systemic lupus erythema ptosis she has a by mail are rash and sees a tutorial laboratory supervisor for this as well. Review of Systems Constitutional: Constitutional: Reports no additional constitutional complaints Eyes: Eyes: Reports no additional eye complaints ENT: Reports system reviewed and no additional complaints, except as documented Cardiovascular: Cardiovascular: Reports palpitations Respiratory: Respiratory: Reports no additional respiratory complaints Gastrointestinal: Gastrointestinal: Reports no additional gastrointestinal complaints Musculoskeletal: Musculoskeletal: Reports no additional musculoskeletal complaints Integumentary/Breasts: Skin/Breast: Reports system reviewed and no additional complaints, except as docu Neurologic: Reports system reviewed and no additional complaints, except as documented Endocrine: Endocrine: Reports no additional endocrine complaints Hematologic/Lymphatic: Hematologic/Lymphatic: Reports no additional hematologic/lymphatic complaints Allergic/Immunologic: Allergic/Immunologic: Reports no additional allergic/immunologic complaints PMFSH Past Medical History Medical History Hypothyroidism Lupus Surgical History Surgical History Hx of thyroidectomy (~2014) left thyroidectomy Family History Family History Mother Depression Hypertension Family history of allergic disorder Family history of hypothyroidism Family history of thyroid disease Father Family histor
--- NOTE | 2023-02-17 14:23 | PM.DS ---
DS: Admitting Diagnosis Discharge Date 02/16/23 Admitting Diagnosis 02/16/23 DS: Discharge Diagnosis Discharge Diagnosis (1) Hypokalemia: Code(s): E87.6 - Hypokalemia Status: Acute Assessment and Plan: patient presented to the ED due to finding potassium of 2.4 in the outpatient setting and was advised to be seen in the ED. when she arrived potassium was retaken in found to be 2.7. She was given 40 mEq potassium in the ED. Will check potassium q.6 hours a replenish as necessary. No signs of any diarrhea, vomiting, or medication induced causes for hypokalemia (2) Lupus: Code(s): M32.9 - Systemic lupus erythematosus, unspecified Status: Acute Assessment and Plan: continue hydroxychloroquine (3) Rapid palpitations: Code(s): R00.2 - Palpitations Status: Acute Assessment and Plan: recently seen by primary care provider due to heart palpitations and tachycardia. Found to have hypokalemia. EKG without T wave abnormalities, sinus rhythm Tele monitoring. Palpitations improved with fluids and potassium supplementation. (4) Hypothyroidism: Qualifiers: Hypothyroidism type: acquired Qualified Code(s): E03.9 - Hypothyroidism, unspecified Code(s): E03.9 - Hypothyroidism, unspecified Status: Chronic Assessment and Plan: continue levothyroxine DS: Summary Hospital Course Hospital Course: This is a 47 year old female with past medical history of hypothyroidism and lupus presented to the ED due to heart palpitations and low potassium. ? She had recently been seen by her primary care provider yesterday due to feeling like her heart is racing.? She had been feeling like this for approximately 2 days.? She had been given propranolol by her PCP and had? taken 1 dose.? After she left her PCPs office she had labs drawn and at that time they found her potassium to be 2.4.? She was called by her PCP and advised to be seen in the ED for potassium supplementation.? EKG in the hospital did not reveal any T wave abnormalities and patient had sinus rhythm.? She denied any chest pain associated with heart palpitations.? She has no history of hypertension although she did begin to feel pains in the back of her head the see associated with anxiety.? Patient did develop hypertension with blood pressure as high as 180/100. Her propranolol was restarted and blood pressures have remained in the 150s. She denies any diarrhea, vomiting or use of diuretics.? Her repeat potassium was 2.7 in the ED and she was given 80 mEq of potassium chloride with her recheck potassium being 3.5.? Potassium has remained stable. Cardiology did assess the patient and due to patient's hypertension and low potassium there was concern for hyperaldosteronism. Cardiology recommending outpatient evaluation. Ordered labs for patient to follow-up with her primary care provider. Will order some labs here such as cortisol, aldosterone and renin and follow them. CT abdomen pelvis will also be reviewed. Advised strict follow-up with PCP and repeat labs prior to PCP visit. Time Spent with Patient Time attestation: Total time spent providing and/or coordinating discharge services: Exam Narrative: GENERAL: Comfortable, no acute distress HENMT: moist mucous membranes, facial redness EYES: EOM intact b/l NECK: no lymphadenopathy RESPIRATORY: clear to auscultation CARDIO: tachycardia, regular rhythm GI: soft, nontender, bowel sounds present SKIN: no rashes EXTREMITIES: no edema, redness or tenderness DS: Data Data Completed and Pending Labs on day of discharge: Labs from last 24 hours 02/17/23 02/17/23 02/16/23 05:38 00:10 17:32 WBC 6.4 RBC 4.88 Hgb 15.2 H Hct 44.6 MCV 91.4 MCH 31.1 MCHC 34.1 RDW 12.2 Plt Count 180 MPV 9.4 Sodium 137 Potassium 3.8 3.7 3.7 Chloride 104 Carbon Dioxide 26 Anion Gap 7 L BUN
[2023-02-18] VITALS: PULSE 57
[2023-02-18 04:00] VITALS: PULSE 62
[2023-02-18 04:40] VITALS: BP 147/86; PULSE 66; RESP 16; TEMP 36.8; O2SAT 98
[2023-02-18] MEDS: LEVOTHYROXINE SODIUM 100 MCG TABLET PO (05:36)
[2023-02-18 08:00] VITALS: PULSE 70
[2023-02-18 08:08] LABS: Basophils Percent Auto 0.7 % (0.2-1.2); Eosinophils Absolute Auto 0.1 K/mm3 (0-0.3); Eosinophils Percent Auto 1.6 % (0-4.4); Hemoglobin 16.4 g/dL (12.0-15.0); Immature Granulocyte Absolute 0.04 K/mm3 (0.00-0.031); Immature Granulocyte Percent A 0.7 % (0-0.5); Lymphocytes Absolute Auto 1.38 K/mm3 (0.9-3.2); Lymphocytes Percent Auto 22.7 % (18.3-44.2); Mean Corpuscular HGB Conc 34.2 g/dl (32-36); Mean Corpuscular Hemoglobin 31.1 pg (26-34); Mean Corpuscular Volume 91.1 fl (80-100); Mean Platelet Volume 9.4 fl (7.4-10.4); Monocytes Absolute Auto 0.5 K/mm3 (0.1-0.6); Monocytes Percent Auto 8.4 % (2.6-8.5); Neutrophils Percent Auto 65.9 % (45.5-73.1); Platelet Count Result 173 k/mm3 (150-375); Red Blood Count 5.27 M/mm3 (4.2-5.4); Red Cell Distribution Width 12.2 % (11.5-14.5); White Blood Count 6.1 K/mm3 (4.5-10.0)
[2023-02-18 08:28] LABS: Alanine Aminotransferase 26 U/L (6-35); Albumin Level 4.3 g/dL (3.5-5.1); Alkaline Phosphatase 62 U/L (38-126); Anion Gap 6 mmol/L (8-16); Aspartate Amino Transferase 26 U/L (14-36); Bilirubin,Total 1.5 mg/dL (0.2-1.3); Blood Urea Nitrogen 12 mg/dL (7-17); Calcium 9.1 mg/dL (8.4-10.2); Carbon Dioxide 28 mmol/L (22-30); Chloride 102 mmol/L (98-107); Estimated CRCL calculation 66 ml/min; Estimated Glomerular Filt Rate > 60; Glucose 107 mg/dL (65-110); Potassium 3.7 mmol/L (3.4-5.0); Sodium 136 mmol/L (137-145)
[2023-02-18 09:14] VITALS: PULSE 66
[2023-02-18] MEDS: PROPRANOLOL HCL 60 MG CAPSULE CR PO (09:14)
--- NOTE | 2023-02-18 11:07 | PM.DS ---
DS: Admitting Diagnosis Discharge Date 02/18/23 Admitting Diagnosis hypokalemia, tachycardia DS: Discharge Diagnosis Discharge Diagnosis (1) Hypokalemia: Code(s): E87.6 - Hypokalemia Status: Acute (2) Lupus: Code(s): M32.9 - Systemic lupus erythematosus, unspecified Status: Acute (3) Rapid palpitations: Code(s): R00.2 - Palpitations Status: Acute (4) Hypothyroidism: Qualifiers: Hypothyroidism type: acquired Qualified Code(s): E03.9 - Hypothyroidism, unspecified Code(s): E03.9 - Hypothyroidism, unspecified Status: Chronic DS: Summary Hospital Course Hospital Course: This is a 47 year old female with past medical history of hypothyroidism and lupus presented to the ED due to heart palpitations and low potassium. ? She had recently been seen by her primary care provider yesterday due to feeling like her heart is racing.? She had been feeling like this for approximately 2 days.? She had been given propranolol by her PCP and had? taken 1 dose.? After she left her PCPs office she had labs drawn and at that time they found her potassium to be 2.4.? She was called by her PCP and advised to be seen in the ED for potassium supplementation.? EKG in the hospital did not reveal any T wave abnormalities and patient had sinus rhythm.? She denied any chest pain associated with heart palpitations.? She has no history of hypertension although she did begin to feel pains in the back of her head the see associated with anxiety.?? Patient did develop hypertension with blood pressure as high as 180/100.? Her propranolol was restarted and blood pressures have remained in the 150s. She denies any diarrhea, vomiting or use of diuretics.? Her repeat potassium was 2.7 in the ED and she was given 80 mEq of potassium chloride with her recheck potassium being 3.5.?? Potassium has remained stable.? Cardiology did assess the patient and due to patient's hypertension and low potassium there was concern for hyperaldosteronism.? Cardiology recommending outpatient evaluation.? Ordered labs for patient to follow-up with her primary care provider.? Will order some labs here such as cortisol, aldosterone and renin and follow them.? CT abdomen pelvis showing 2.2 x 1.9 cm right adrenal mass that could reflect adenoma.? MRI with without contrast ordered Advised strict follow-up with PCP and repeat labs prior to PCP visit. Time Spent with Patient Time attestation: Total time spent providing and/or coordinating discharge services: Exam Narrative: GENERAL: Comfortable, no acute distress HENMT: moist mucous membranes, facial redness EYES: EOM intact b/l NECK: no lymphadenopathy RESPIRATORY: clear to auscultation CARDIO: RRR GI: soft, nontender, bowel sounds present SKIN: no rashes EXTREMITIES: no edema, redness or tenderness DS: Data Data Completed and Pending Labs on day of discharge: Labs from last 24 hours 02/18/23 02/17/23 08:00 15:12 WBC 6.1 RBC 5.27 Hgb 16.4 H Hct 48.0 H MCV 91.1 MCH 31.1 MCHC 34.2 RDW 12.2 Plt Count 173 MPV 9.4 Immature Gran % (Auto) 0.7 H Neut % (Auto) 65.9 Lymph % (Auto) 22.7 [place] % (Auto) 8.4 Eos % (Auto) 1.6 Baso % (Auto) 0.7 Lymph # (Auto) 1.38 [place] # (Auto) 0.5 Eos # (Auto) 0.1 Baso # (Auto) 0.0 Abs Immat Gran (auto) 0.04 H Absolute Neuts (auto) 4.0 Absolute Nucleated RBC 0.0 Nucleated RBC % 0.0 Sodium 136 L Potassium 3.7 Chloride 102 Carbon Dioxide 28 Anion Gap 6 L BUN 12 Creatinine 0.80 Estim Creat Clear Calc 66 Estimated GFR > 60 Glucose 107 Calcium 9.1 Total Bilirubin 1.5 H AST 26 ALT 26 Alkaline Phosphatase 62 Total Protein 7.0 Albumin 4.3 Renin Pending Aldosterone Pending Random Cortisol 15.60 16.70 Plasma Free Metaneph Pending Plasma Free Normeta Pending Pls Totl Free Metaneph Pending Discharge Plan Discharge Attending physician o
--- NOTE | 2023-02-21 09:54 | PC.NURSE ---
Cortisol is 15.60. CT abd/pelvis- indeterminate right adrenal mass which may reflect an adenoma. Erin. RASHAD Robbins aware.
[2023-02-22 11:05] LABS: Metanephrine, Free 41 pg/mL (<=57); Normetanephrine, Free 80 pg/mL (<=148); Total, Free (MN + NMN) 121 pg/mL (<=205)
--- NOTE | 2023-02-23 06:57 | PC.NURSE ---
Metanephrine and aldosterone are both WNL.
[2023-02-28 05:06] LABS: Renin 0.12 ng/mL/h (0.25-5.82)
--- NOTE | 2023-02-28 09:58 | PC.NURSE ---
Renin is low at 0.12. RASHAD Lopez aware of findings.
== END 2023-02-18 11:45 | disposition home or self-care (01) ==
LOC: ANHED 02-16 03:27 → ANH2MED 02-16 09:21 → ANH3MEDSUR 02-21 10:26
PROVIDERS: Internal Medicine Critical Care Medicine; Admitting Provider Internal Medicine; Emergency Provider Physician Assistant; PCP Family Medicine; Visit Provider Internal Medicine
DX: E87.6 Hypokalemia (principal); R00.2 Palpitations; R00.0 Tachycardia, unspecified; M32.9 Systemic lupus erythematosus, unspecified; R94.6 Abnormal results of thyroid function studies; E89.0 Postprocedural hypothyroidism; D35.01 Benign neoplasm of right adrenal gland; R79.89 Other specified abnormal findings of blood chemistry; Z79.3 Long term (current) use of hormonal contraceptives; Z83.49 Family history of other endocrine, nutritional and metabolic diseases; Z79.899 Other long term (current) drug therapy
CPT/HCPCS: 36415; 74176; 74183; 80048; 80053; 82088; 82533; 82652; 83690; 83735; 83835; 84132; 84244; 84439; 84443; 84484; 85025; 85027; 93005; 96365; 96366; 96376; 99285; A9270; A9577; G0378; J3480; J7030; J7040

== ENCOUNTER 2023-02-24 07:06 | Outpatient (CLI) | payer OTHER, SELFPAY ==
[2023-02-24 08:15] LABS: Alanine Aminotransferase 21 U/L (6-35); Albumin Level 4.1 g/dL (3.5-5.1); Alkaline Phosphatase 66 U/L (38-126); Anion Gap 6 mmol/L (8-16); Aspartate Amino Transferase 22 U/L (14-36); Bilirubin,Total 0.7 mg/dL (0.2-1.3); Blood Urea Nitrogen 5 mg/dL (7-17); Calcium 8.9 mg/dL (8.4-10.2); Carbon Dioxide 28 mmol/L (22-30); Chloride 107 mmol/L (98-107); Estimated Glomerular Filt Rate > 60; Glucose 117 mg/dL (65-110); Potassium 4.2 mmol/L (3.4-5.0); Sodium 141 mmol/L (137-145)
== END 2023-02-24 07:07 | disposition home or self-care (01) ==
LOC: ANHLAB 07:08
PROVIDERS: PCP Nurse Practitioner Family; Visit Provider Internal Medicine Critical Care Medicine
DX: E87.6 Hypokalemia (principal)
CPT/HCPCS: 36415; 80053

== ENCOUNTER 2023-03-06 14:56 | Outpatient (CLI) | payer OTHER, SELFPAY ==
[2023-03-06 19:30] LABS: Alanine Aminotransferase 16 U/L (6-35); Albumin Level 3.8 g/dL (3.5-5.1); Alkaline Phosphatase 66 U/L (38-126); Anion Gap 8 mmol/L (8-16); Aspartate Amino Transferase 25 U/L (14-36); Bilirubin,Total 0.5 mg/dL (0.2-1.3); Blood Urea Nitrogen 6 mg/dL (7-17); Calcium 8.8 mg/dL (8.4-10.2); Carbon Dioxide 27 mmol/L (22-30); Chloride 107 mmol/L (98-107); Estimated Glomerular Filt Rate > 60; Glucose 102 mg/dL (65-110); Potassium 4.1 mmol/L (3.4-5.0); Sodium 142 mmol/L (137-145)
== END 2023-03-06 14:57 | disposition home or self-care (01) ==
LOC: ANHGOSHLAB 14:57
PROVIDERS: PCP Nurse Practitioner Family; Visit Provider Nurse Practitioner Family
DX: I10 Essential (primary) hypertension (principal)
CPT/HCPCS: 36415; 80053

== ENCOUNTER 2023-04-18 14:13 | Emergency (ER) | payer OTHER, SELFPAY ==
[2023-04-18 14:19] VITALS: BP 142/76; PULSE 120; RESP 16; TEMP 36.7; O2SAT 99
--- NOTE | 2023-04-18 14:22 | ECG_ITS ---
Measurements Intervals [place] Rate: 92 P: 68 AR: 149 QRS: 66 QRSD: 89 T: 54 QT: 336 QTc: 416 Interpretive Statements SINUS RHYTHM COMPARED TO ECG 02/17/2023 10:15:07 NO SIGNIFICANT CHANGES Electronically Signed On 04-19-2023 13:16:53 LAUNDRY SORTER by Luis August M.D.
[2023-04-18 18:40] VITALS: PULSE 92
[2023-04-18 18:53] VITALS: BP 153/92; PULSE 94; RESP 18; O2SAT 100
[2023-04-18 18:59] LABS: Basophils Absolute Auto 0.1 K/mm3 (0.0-0.1); Basophils Percent Auto 0.9 % (0.2-1.2); Eosinophils Absolute Auto 0.1 K/mm3 (0-0.3); Eosinophils Percent Auto 1.4 % (0-4.4); Hematocrit 41.7 % (37.0-47.0); Immature Granulocyte Absolute 0.01 K/mm3 (0.00-0.031); Immature Granulocyte Percent A 0.2 % (0-0.5); Lymphocytes Absolute Auto 1.49 K/mm3 (0.9-3.2); Lymphocytes Percent Auto 22.9 % (18.3-44.2); Mean Corpuscular HGB Conc 33.6 g/dl (32-36); Mean Corpuscular Hemoglobin 30.7 pg (26-34); Mean Corpuscular Volume 91.4 fl (80-100); Mean Platelet Volume 10.7 fl (7.4-10.4); Monocytes Absolute Auto 0.5 K/mm3 (0.1-0.6); Monocytes Percent Auto 7.1 % (2.6-8.5); Neutrophils Absolute Auto 4.4 K/mm3 (1.3-6.7); Neutrophils Percent Auto 67.5 % (45.5-73.1); Platelet Count Result 248 k/mm3 (150-375); Red Blood Count 4.56 M/mm3 (4.2-5.4); Red Cell Distribution Width 11.8 % (11.5-14.5); White Blood Count 6.5 K/mm3 (4.5-10.0)
[2023-04-18 19:11] LABS: Alanine Aminotransferase 21 U/L (6-35); Albumin Level 4.2 g/dL (3.5-5.1); Alkaline Phosphatase 87 U/L (38-126); Anion Gap 13 mmol/L (8-16); Aspartate Amino Transferase 27 U/L (14-36); Bilirubin,Total 0.9 mg/dL (0.2-1.3); Blood Urea Nitrogen 7 mg/dL (7-17); Calcium 9.1 mg/dL (8.4-10.2); Carbon Dioxide 19 mmol/L (22-30); Chloride 108 mmol/L (98-107); Estimated CRCL calculation 73 ml/min; Estimated Glomerular Filt Rate > 60; Glucose 118 mg/dL (65-110); Potassium 3.7 mmol/L (3.4-5.0); Sodium 140 mmol/L (137-145)
--- NOTE | 2023-04-18 19:53 | ED.GENADULT ---
HPI - General Adult General Chief complaint: Unspecified Stated complaint: tachycardia Time Seen by Provider: 04/18/23 19:09 History of Present Illness HPI narrative: The patient is a 48-year-old female who presents to the emergency department with chief complaint of palpitations. Patient reports that several months ago she had an episode where her heart was beating fast and she was found to have a low potassium at that time. Patient reports that today she noticed that her heart rate was running right around 100 and was concerned as her blood pressure also was slightly elevated at that time. The patient states that she is not having any chest pain denies syncope reports that she is concerned as she is going to floor tomorrow to get on a cruise to go to the [facility] and did not want to be in the [facility] if she had a medical issue. Related Data Home Medications Medication Instructions Recorded Confirmed norgestimate-ethinyl estradiol 1 tablet PO DAILY 03/01/19 03/06/23 0.18 mg/0.215mg/0.25mg-35 mcg(28)tablet (Ortho Tri-Cyclen (28)) Allergies Allergy/AdvReac Type Severity Reaction Status Date / Time Penicillins Allergy Unknown Joint Pain Verified 04/18/23 18:53 Review of Systems Review of Systems: A 10 system review of systems was completed on the patient and is negative except for what is stated in the HPI. Nursing and ancillary documentation was reviewed. 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 Daughter lives with pt. Never alcohol or drug use. Smoking status: Never smoker Alcohol intake: never Substance use: never Substance use type: does not use Lack of Transportation: No Lack of Food: Never True Current Housing: I Have Housing Concerned About Future Housing: No Difficulty Paying Gas/Electric Bills: No Difficulty Paying for Meds: No Currently Unemployed: No Education: Master's Degree or Higher Difficulty w/ Childcare or Family Care: No Living arrangements: with family Occupation/Education: occupation Additional occupation/education comments: Pharmacist Gender identity (if verbalized by the patient): Female Spiritual care concerns: No Agree to blood products: Yes Exam Narrative: GENERAL: Well-appearing, well-nourished, and in no acute distress. HEAD: Normocephalic, atraumatic. EYES: PERRLA and EOMI. ENT: Nares clear, no rhinorrhea or epistaxis. Mucous membranes moist. NECK: Supple. CHEST: Clear to auscultation. No respiratory distress. HEART: Regular rate and rhythm. No murmur heard. Normal peripheral pulses. ABDOMEN: Soft, nontender, nondistended, normal active bowel sounds. EXTREMITIES: Normal range of motion. No edema. SKIN: Warm, dry, no rash. NEURO: No focal deficits. Alert and oriented x3. PSYCH: Normal mood and affect. Course Vital Signs Vital signs: Vital Signs Temperature 36.7 C 04/18/23 14:19 Pulse Rate 120 H 04/18/23 14:19 Respiratory Rate 16 04/18/23 14:19 Blood Pressure 142/76 H 04/18/23 14:19 Pulse Oximetry 99 04/18/23 14:19 Oxygen Delivery Room Air 04/18/23 14:19 Temperature 36.7 C 04/18/23 14:19 Pulse Rate 82 04/18/23 20:39 Respiratory Ra
[2023-04-18] MEDS: POTASSIUM CHLORIDE 20 MEQ PACKET (FOR LIQUID) 40 MEQ PO (20:36)
[2023-04-18 20:39] VITALS: BP 134/90; PULSE 82; RESP 16; O2SAT 99
[2023-04-18 21:30] VITALS: BP 133/82; PULSE 74; RESP 18; O2SAT 98
== END 2023-04-18 21:30 | disposition home or self-care (01) ==
PROVIDERS: Emergency Medicine; Emergency Provider Emergency Medicine; PCP Nurse Practitioner Family
DX: R00.2 Palpitations (principal); E03.9 Hypothyroidism, unspecified; M32.9 Systemic lupus erythematosus, unspecified
CPT/HCPCS: 36415; 80053; 83735; 84443; 85025; 93005; 99283; A9270

== ENCOUNTER 2023-05-29 12:18 | Outpatient (CLI) | payer OTHER, SELFPAY ==
[2023-05-29 13:24] LABS: Alanine Aminotransferase 16 U/L (6-35); Albumin Level 4.1 g/dL (3.5-5.1); Alkaline Phosphatase 49 U/L (38-126); Anion Gap 7 mmol/L (8-16); Aspartate Amino Transferase 20 U/L (14-36); Bilirubin,Total 0.6 mg/dL (0.2-1.3); Blood Urea Nitrogen 8 mg/dL (7-17); Calcium 8.8 mg/dL (8.4-10.2); Carbon Dioxide 30 mmol/L (22-30); Chloride 104 mmol/L (98-107); Estimated Glomerular Filt Rate > 60; Glucose 131 mg/dL (65-110); Potassium 3.4 mmol/L (3.4-5.0); Sodium 141 mmol/L (137-145)
== END 2023-05-29 12:19 | disposition home or self-care (01) ==
LOC: ANHLAB 12:20
PROVIDERS: PCP Nurse Practitioner Family; Visit Provider Nurse Practitioner Family
DX: E87.6 Hypokalemia (principal)
CPT/HCPCS: 36415; 80053

== ENCOUNTER 2023-06-27 13:52 | Outpatient (CLI) | payer OTHER, SELFPAY ==
[2023-06-27 14:21] LABS: Potassium 3.6 mmol/L (3.4-5.0)
== END 2023-06-27 13:53 | disposition home or self-care (01) ==
LOC: ANHLAB 13:53
PROVIDERS: PCP Nurse Practitioner Family; Visit Provider Internal Medicine
DX: D35.00 Benign neoplasm of unspecified adrenal gland (principal); R03.0 Elevated blood-pressure reading, without diagnosis of hypertension; E03.9 Hypothyroidism, unspecified
CPT/HCPCS: 36415; 84132

== ENCOUNTER 2023-06-30 07:22 | Outpatient (CLI) | payer OTHER, SELFPAY ==
--- NOTE | ~2023-06-30 | MM_ITS ---
EXAMINATION: MM screening yessy BI w jillian HISTORY: Screening mammogram TECHNIQUE: Craniocaudal and mediolateral oblique 3-D tomosynthesis images were obtained and synthetic 2-D images were generated. CAD analysis was submitted and interpreted. COMPARISON: June 08, 2022, April 19, 2021 bilateral screening mammogram examinations BREAST PARENCHYMAL COMPOSITION: The breasts are extremely dense, which lowers the sensitivity of mamm ography. FINDINGS: There is no evidence of suspicious mass, calcification, or architectural distortion to sugg est malignancy in either breast. There has been no suspicious interval change. IMPRESSION: 1. No mammographic evidence of malignancy. 2. Recommend routine screening mammography in one year. BI-RADS Category 1: Negative Reviewed, dictated and finalized at location A. K MANAGER
== END 2023-06-30 07:23 | disposition home or self-care (01) ==
LOC: ANHIMG 07:24
PROVIDERS: PCP Nurse Practitioner Family; Visit Provider Obstetrics & Gynecology
DX: Z12.31 Encounter for screening mammogram for malignant neoplasm of breast (principal)
CPT/HCPCS: 77063; 77067

== ENCOUNTER 2023-06-30 12:26 | Emergency (ER) | payer OTHER, SELFPAY ==
--- NOTE | ~2023-06-30 | XR_ITS ---
Clinical Indication: Palpitations PA and lateral views of the chest: Comparison: None Findings: The lungs are clear, without evidence of focal consolidation or pleural effusion. Cardiome diastinal silhouette is within normal limits. Bones and soft tissues are unremarkable. Impression: Normal chest. Reviewed, dictated and finalized at [facility]. ER ON Impression: Normal chest.
[2023-06-30 12:42] VITALS: BP 175/105; PULSE 102; RESP 17; TEMP 36.6; O2SAT 100
--- NOTE | 2023-06-30 12:42 | ECG_ITS ---
Measurements Intervals [place] Rate: 91 P: 74 CO: 155 QRS: 63 QRSD: 90 T: 67 QT: 359 QTc: 443 Interpretive Statements SINUS RHYTHM WITH SINUS ARRHYTHMIA MINIMAL Q WAVES- ANTEROLAT/INF LEADS BORDERLINE ECG COMPARED TO ECG 04/18/2023 18:39:28 SINUS ARRHYTHMIA NOW PRESENT Electronically Signed On 06-30-2023 12:51:09 DUMPSTER OPERATOR by Jasson Forbes D.O.
[2023-06-30 13:01] LABS: Basophils Percent Auto 0.6 % (0.2-1.2); Eosinophils Percent Auto 0.5 % (0-4.4); Hematocrit 46.2 % (37.0-47.0); Hemoglobin 15.5 g/dL (12.0-15.0); Immature Granulocyte Absolute 0.04 K/mm3 (0.00-0.031); Immature Granulocyte Percent A 0.6 % (0-0.5); Lymphocytes Absolute Auto 1.69 K/mm3 (0.9-3.2); Mean Corpuscular HGB Conc 33.5 g/dl (32-36); Mean Corpuscular Hemoglobin 31.3 pg (26-34); Mean Corpuscular Volume 93.1 fl (80-100); Mean Platelet Volume 9.7 fl (7.4-10.4); Monocytes Absolute Auto 0.5 K/mm3 (0.1-0.6); Neutrophils Percent Auto 63.3 % (45.5-73.1); Platelet Count Result 252 k/mm3 (150-375); Red Blood Count 4.96 M/mm3 (4.2-5.4); Red Cell Distribution Width 12.7 % (11.5-14.5); White Blood Count 6.3 K/mm3 (4.5-10.0)
[2023-06-30 13:21] LABS: INR 0.9; Partial Thromboplastin Time 25.8 SECONDS (22.3-36.8); Prothrombin Time 12.2 Seconds (11.1-14.7)
[2023-06-30 13:22] LABS: Alanine Aminotransferase 19 U/L (6-35); Albumin Level 4.5 g/dL (3.5-5.1); Alkaline Phosphatase 72 U/L (38-126); Anion Gap 7 mmol/L (8-16); Aspartate Amino Transferase 25 U/L (14-36); Bilirubin,Total 0.9 mg/dL (0.2-1.3); Blood Urea Nitrogen 8 mg/dL (7-17); Calcium 9.2 mg/dL (8.4-10.2); Carbon Dioxide 27 mmol/L (22-30); Chloride 107 mmol/L (98-107); Estimated CRCL calculation 65 ml/min; Estimated Glomerular Filt Rate > 60; Glucose 103 mg/dL (65-110); Lipase 115 U/L (23-300); Sodium 141 mmol/L (137-145)
[2023-06-30 13:32] LABS: Troponin I < 0.012 ng/mL (0.000-0.034)
[2023-06-30 14:05] LABS: Potassium 3.2 mmol/L (3.4-5.0)
[2023-06-30 14:12] LABS: Magnesium 2.1 mg/dL (1.6-2.3)
[2023-06-30] MEDS: POTASSIUM CHLORIDE 20 MEQ PACKET (FOR LIQUID) 40 MEQ PO (14:20)
--- NOTE | 2023-06-30 14:50 | ED.GENADULT ---
HPI - General Adult General Chief complaint: Arrhythmia/Palpitations Stated complaint: palpitations Time Seen by Provider: 06/30/23 13:44 History of Present Illness HPI narrative: Patient is a 48-year-old female who presents emergency department with chief complaint of palpitations. Patient reports that she started feeling as though her heart was beating heavier than normal patient reports this feels similar to whenever potassium levels were low. The patient reports that she had outpatient labs recently that showed that her potassium was 3.6. The patient denies vomiting denies diarrhea Related Data Home Medications Medication Instructions Recorded Confirmed norgestimate-ethinyl estradiol 1 tablet PO DAILY 03/01/19 03/06/23 0.18 mg/0.215mg/0.25mg-35 mcg(28)tablet (Ortho Tri-Cyclen (28)) Allergies Allergy/AdvReac Type Severity Reaction Status Date / Time Penicillins Allergy Unknown Joint Pain Verified 06/30/23 12:26 Review of Systems Review of Systems: A 10 system review of systems was completed on the patient and is negative except for what is stated in the HPI. Nursing and ancillary documentation was reviewed. 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 Never alcohol or drug use. Smoking status: Never smoker Alcohol intake: never Substance use: never Substance use type: does not use Lack of Transportation: No Lack of Food: Never True Current Housing: I Have Housing Concerned About Future Housing: No Difficulty Paying Gas/Electric Bills: No Difficulty Paying for Meds: No Currently Unemployed: No Education: Master's Degree or Higher Difficulty w/ Childcare or Family Care: No Living arrangements: with family Occupation/Education: occupation Additional occupation/education comments: Pharmacist Gender identity (if verbalized by the patient): Female Spiritual care concerns: No Agree to blood products: Yes Exam Narrative: GENERAL: Well-appearing, well-nourished, and in no acute distress. HEAD: Normocephalic, atraumatic. EYES: PERRLA and EOMI. ENT: Nares clear, no rhinorrhea or epistaxis. Mucous membranes moist. NECK: Supple. CHEST: Clear to auscultation. No respiratory distress. HEART: Regular rate and rhythm. No murmur heard. Normal peripheral pulses. ABDOMEN: Soft, nontender, nondistended, normal active bowel sounds. EXTREMITIES: Normal range of motion. No edema. SKIN: Warm, dry, no rash. NEURO: No focal deficits. Alert and oriented x3. PSYCH: Normal mood and affect. Course Vital Signs Vital signs: Vital Signs Temperature 36.6 C 06/30/23 12:42 Pulse Rate 102 H 06/30/23 12:42 Respiratory Rate 17 06/30/23 12:42 Blood Pressure 175/105 H 06/30/23 12:42 Pulse Oximetry 100 06/30/23 12:42 Oxygen Delivery Room Air 06/30/23 12:42 Temperature 36.6 C 06/30/23 12:42 Pulse Rate 102 H 06/30/23 12:42 Respiratory Rate 17 06/30/23 12:42 Blood Pressure 175/105 H 06/30/23 12:42 Pulse Oximetry 100 06/30/23 12:42 Oxygen Delivery Room Air 06/30/23 12:42 Medical Decision Making MDM Narrative Medical decision making narrative: Differentia
[2023-06-30 15:35] VITALS: BP 145/102; PULSE 78; RESP 20; O2SAT 99
== END 2023-06-30 15:36 | disposition home or self-care (01) ==
PROVIDERS: Emergency Provider Emergency Medicine; PCP Nurse Practitioner Family
DX: R00.2 Palpitations (principal); E87.6 Hypokalemia; E89.0 Postprocedural hypothyroidism; M32.9 Systemic lupus erythematosus, unspecified; R94.31 Abnormal electrocardiogram [ECG] [EKG]
CPT/HCPCS: 36415; 71046; 80053; 83690; 83735; 84484; 85025; 85610; 85730; 93005; 99284; A9270

== ENCOUNTER 2023-07-10 07:08 | Outpatient (CLI) | payer OTHER, SELFPAY | END 2023-07-10 07:09 | disposition home or self-care (01) | LOC: ANHLAB 07:10 | PROVIDERS: PCP Nurse Practitioner Family; Visit Provider Internal Medicine | DX: E87.6 Hypokalemia (principal) | CPT/HCPCS: 36415; 84132 ==

== ENCOUNTER 2023-07-11 07:07 | Outpatient (CLI) | payer OTHER, SELFPAY ==
[2023-07-11 07:47] LABS: Alanine Aminotransferase 23 U/L (6-35); Albumin Level 4.4 g/dL (3.5-5.1); Alkaline Phosphatase 73 U/L (38-126); Anion Gap 11 mmol/L (8-16); Aspartate Amino Transferase 28 U/L (14-36); Blood Urea Nitrogen 8 mg/dL (7-17); Calcium 9.7 mg/dL (8.4-10.2); Carbon Dioxide 19 mmol/L (22-30); Chloride 111 mmol/L (98-107); Estimated Glomerular Filt Rate > 60; Glucose 139 mg/dL (65-110); Potassium 4.1 mmol/L (3.4-5.0); Sodium 141 mmol/L (137-145)
[2023-07-11 07:58] LABS: Parathyroid Intact 58.6 pg/mL (7.5-53.5)
[2023-07-11 08:43] LABS: Free T4 Free Thyroxine 1.24 ng/mL (0.78-2.19); Vitamin D 25 Hydroxy 44.1 ng/mL
[2023-07-13 21:12] LABS: DHEA-Sulfate <2 mcg/dL (19-231)
[2023-07-18 11:02] LABS: Metanephrine, Free 36 pg/mL (<=57); Normetanephrine, Free 110 pg/mL (<=148); Total, Free (MN + NMN) 146 pg/mL (<=205)
[2023-07-21 13:13] LABS: Renin 0.49 ng/mL/h (0.25-5.82)
== END 2023-07-11 07:08 | disposition home or self-care (01) ==
LOC: ANHLAB 07:08
PROVIDERS: PCP Nurse Practitioner Family; Visit Provider Internal Medicine
DX: R03.0 Elevated blood-pressure reading, without diagnosis of hypertension (principal); E03.9 Hypothyroidism, unspecified; D35.00 Benign neoplasm of unspecified adrenal gland
CPT/HCPCS: 36415; 80053; 82088; 82306; 82384; 82533; 82627; 83835; 83970; 84244; 84439; 84443

== ENCOUNTER 2023-07-17 07:11 | Outpatient (CLI) | payer OTHER, SELFPAY ==
[2023-07-23 13:06] LABS: Metanephrine, Total Urine 276 mcg/24 h (182-739); Metanephrine, Urine 78 mcg/24 h (58-203); Normetanephrine, Urine 198 mcg/24 h (88-649)
== END 2023-07-17 07:12 | disposition home or self-care (01) ==
LOC: ANHLAB 07:12
PROVIDERS: PCP Nurse Practitioner Family; Visit Provider Internal Medicine
DX: D35.00 Benign neoplasm of unspecified adrenal gland (principal); R03.0 Elevated blood-pressure reading, without diagnosis of hypertension; E03.9 Hypothyroidism, unspecified
CPT/HCPCS: 83835

== ENCOUNTER 2023-07-24 07:02 | Outpatient (CLI) | payer OTHER, SELFPAY ==
[2023-07-24 08:08] LABS: Hematocrit 42.1 % (37.0-47.0); Hemoglobin 14.1 g/dL (12.0-15.0); Mean Corpuscular HGB Conc 33.5 g/dl (32-36); Mean Corpuscular Hemoglobin 30.9 pg (26-34); Mean Corpuscular Volume 92.3 fl (80-100); Mean Platelet Volume 10.1 fl (7.4-10.4); Platelet Count Result 281 k/mm3 (150-375); Red Blood Count 4.56 M/mm3 (4.2-5.4); Red Cell Distribution Width 12.5 % (11.5-14.5); White Blood Count 4.5 K/mm3 (4.5-10.0)
[2023-07-24 08:09] LABS: Appearance Urine Clear (Clear); Bilirubin Urine Negative (Negative); Blood Urine Negative (Negative); Color Urine Yellow (Yellow); Glucose Urine UA Negative (Negative); Ketones Urine Negative (Negative); Leukocyte Esterase Ur Negative LEU/UL (Negative); Nitrate Urine Negative (Negative); Protein Urine Negative (Negative); Specific Grav Ur 1.011 (1.001-1.035); Urobilinogen Urine 0.2 mg/dL (<2.0)
[2023-07-24 08:14] LABS: Alanine Aminotransferase 16 U/L (6-35); Alkaline Phosphatase 64 U/L (38-126); Anion Gap 6 mmol/L (4-12); Aspartate Amino Transferase 26 U/L (14-36); Bilirubin,Total 0.6 mg/dL (0.2-1.3); Blood Urea Nitrogen 6 mg/dL (7-17); Calcium 8.9 mg/dL (8.4-10.2); Carbon Dioxide 25 mmol/L (22-30); Chloride 110 mmol/L (98-107); Estimated Glomerular Filt Rate > 60; Glucose 82 mg/dL (65-110); Potassium 3.9 mmol/L (3.4-5.0); Sodium 141 mmol/L (137-145)
[2023-07-24 08:18] LABS: Add Urine Microscopic? NO
[2023-07-24 09:15] LABS: Erythrocyte Sedimentation Rate 21 mm/hr (0-20)
[2023-07-24 09:57] LABS: CRP < 0.5 mg/dL (<1.0)
== END 2023-07-24 07:03 | disposition home or self-care (01) ==
LOC: ANHLAB 07:03
PROVIDERS: PCP Nurse Practitioner Family; Visit Provider Internal Medicine
DX: M35.9 Systemic involvement of connective tissue, unspecified (principal); M19.90 Unspecified osteoarthritis, unspecified site
CPT/HCPCS: 36415; 80053; 81003; 85027; 85652; 86140

== ENCOUNTER 2023-07-29 07:17 | Outpatient (CLI) | payer OTHER, SELFPAY ==
[2023-07-29 08:25] LABS: Anion Gap 6 mmol/L (4-12); Blood Urea Nitrogen 7 mg/dL (7-17); Calcium 9.5 mg/dL (8.4-10.2); Carbon Dioxide 24 mmol/L (22-30); Chloride 109 mmol/L (98-107); Estimated Glomerular Filt Rate > 60; Glucose 107 mg/dL (65-110); Potassium 3.9 mmol/L (3.4-5.0); Sodium 139 mmol/L (137-145)
[2023-07-29 08:51] LABS: Cortisol Random 6.58 ug/dL
[2023-08-03 03:34] LABS: Adrenocorticotropic Hormone 8 pg/mL (6-50)
[2023-08-06 14:12] LABS: PRA 0.38 ng/mL/h (0.25-5.82)
[2023-08-09 10:51] LABS: Dexamethasone 353 ng/dL
== END 2023-07-29 07:18 | disposition home or self-care (01) ==
LOC: ANHLAB 07:19
PROVIDERS: PCP Nurse Practitioner Family
DX: E27.8 Other specified disorders of adrenal gland (principal)
CPT/HCPCS: 36415; 80048; 80299; 82024; 82088; 82533; 84244

== ENCOUNTER 2023-07-31 08:33 | Emergency (ER) | payer OTHER, SELFPAY ==
--- NOTE | ~2023-07-31 | XR_ITS ---
EXAMINATION: XR chest 2V DATE: 07/31/2023 09:24 INDICATION: Palpitations. TECHNIQUE: Frontal and lateral views of the chest were obtained. COMPARISON: Chest 2 views 06/30/2023 FINDINGS: There is no pneumonia, pleural effusion, or pneumothorax. The heart size is normal. IMPRESSION: 1. No acute cardiopulmonary disease. Reviewed, dictated and finalized at location A.
[2023-07-31 08:38] VITALS: BP 168/93; PULSE 125; RESP 17; TEMP 36.6; O2SAT 100
--- NOTE | 2023-07-31 08:40 | ECG_ITS ---
Measurements Intervals [place] Rate: 109 P: 72 FL: 167 QRS: 66 QRSD: 89 T: 52 QT: 326 AVG RR: 548 QTc: 390 QTCB: 440 QTCF: 398 Interpretive Statements SINUS TACHYCARDIA ABNORMAL ECG SEE SCANNED COPY FOR SIGNATURE MTDD
[2023-07-31 08:49] VITALS: O2SAT 100
[2023-07-31 08:50] VITALS: PULSE 104
--- NOTE | 2023-07-31 08:55 | ED.ARRPALP ---
HPI - Arrhythmia/Palpitations General Chief Complaint: Arrhythmia/Palpitations Stated Complaint: palpitations Time Seen by Provider: 07/31/23 08:40 History of Present Illness HPI narrative: 48-year-old female history of lupus and hypokalemia presenting to the emergency department for evaluation rapid heart rate. Patient states yesterday she was having some issues with rapid heart rate, patient states she has had issues with hypokalemia and does take potassium supplements, patient states sometimes of potassium did slow that she has onset of the rapid heart rate Related Data Home Medications Medication Instructions Recorded Confirmed norgestimate-ethinyl estradiol 1 tablet PO DAILY 03/01/19 03/06/23 0.18 mg/0.215mg/0.25mg-35 mcg(28)tablet (Ortho Tri-Cyclen (28)) Allergies Allergy/AdvReac Type Severity Reaction Status Date / Time Penicillins Allergy Unknown Joint Pain Verified 07/31/23 08:34 Review of Systems Review of Systems: All systems reviewed & are unremarkable except as noted in HPI and below PMFSH Past Medical History Medical History Hypothyroidism Lupus Surgical History Surgical History Hx of thyroidectomy (~2014) left thyroidectomy Family History Family History Mother Depression Hypertension Family history of allergic disorder Family history of hypothyroidism Family history of thyroid disease Father Family history of malignant neoplasm of thyroid, Onset Age: 70 Family history of malignant neoplasm, Onset Age: 70 Social History Social History 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 Never alcohol or drug use. Smoking status: Never smoker Alcohol intake: never Substance use: never Substance use type: does not use Lack of Transportation: No Lack of Food: Never True Current Housing: I Have Housing Concerned About Future Housing: No Difficulty Paying Gas/Electric Bills: No Difficulty Paying for Meds: No Currently Unemployed: No Education: Master's Degree or Higher Difficulty w/ Childcare or Family Care: No Living arrangements: with family Occupation/Education: occupation Additional occupation/education comments: Pharmacist Gender identity (if verbalized by the patient): Female Spiritual care concerns: No Agree to blood products: Yes Exam Narrative: APPEARANCE: Well appearing, no pain, no distress, well-nourished. HEAD: normocephalic, atraumatic. EYES: PERRLA/EOMI, conjunctivae clear. NOSE: Normal no drainage NECK: Supple. No adenopathy, no masses. RESPIRATORY: Airway patent, respirations nonlabored. Clear to auscultation bilaterally, no rales, rhonchi, wheezing. CARDIOVASCULAR: Regular rate and rhythm without murmurs rubs or gallops. ABDOMINAL: Soft, nontender, nondistended, normal bowel sounds MUSCULOSKELETAL: Moves all extremities. Strength/ROM intact, No edema, No calf tenderness. NEURO: Alert. Cranial nerves II through XII intact. Grossly intact SKIN: Warm, dry. Normal Color Course Vital Signs Vital signs: Vital Signs Temperature 97.8 F 07/31/23 08:38 Pulse Rate 125 H 07/31/23 08:38 Respiratory Rate 17 07/31/23 08:38 Blood Pressure 168/93 H 07/31/23 08:38 Pulse Oximetry 100 07/31/23 08:38 Oxygen Delivery Room Air 07/31/23 08:38 Temperature 97.8 F 07/31/23 08:38 Pulse Rate 89 07/31/23 14:45 Respiratory Rate 18 07/31/23 14:45 Blood Pressure 142/81 H 07/31/23 14:45 Pulse Oximetry 100 07/31/23 14:45 Oxygen Delivery Room Air 07/31/23 08:49 MDM - Arrhythmia/Palpitations MDM Narrative Medical decision making narrative: 48-year-old female present to the emergency department fo
[2023-07-31] MEDS: SODIUM CHLORIDE 0.9% IV 1,000 ML 999 ML IV CONT (08:58)
[2023-07-31 09:02] LABS: Basophils Absolute Auto 0.1 K/mm3 (0.0-0.1); Basophils Percent Auto 1.2 % (0.2-1.2); Eosinophils Absolute Auto 0.1 K/mm3 (0-0.3); Eosinophils Percent Auto 2.2 % (0-4.4); Hematocrit 42.2 % (37.0-47.0); Hemoglobin 14.5 g/dL (12.0-15.0); Immature Granulocyte Absolute 0.02 K/mm3 (0.00-0.031); Immature Granulocyte Percent A 0.4 % (0-0.5); Lymphocytes Absolute Auto 1.48 K/mm3 (0.9-3.2); Mean Corpuscular HGB Conc 34.4 g/dl (32-36); Mean Corpuscular Hemoglobin 31.5 pg (26-34); Mean Corpuscular Volume 91.7 fl (80-100); Mean Platelet Volume 10.3 fl (7.4-10.4); Monocytes Absolute Auto 0.4 K/mm3 (0.1-0.6); Monocytes Percent Auto 7.3 % (2.6-8.5); Neutrophils Absolute Auto 2.9 K/mm3 (1.3-6.7); Neutrophils Percent Auto 58.9 % (45.5-73.1); Platelet Count Result 246 k/mm3 (150-375); Red Cell Distribution Width 12.5 % (11.5-14.5); White Blood Count 4.9 K/mm3 (4.5-10.0)
[2023-07-31 09:18] LABS: INR 0.9; Prothrombin Time 12.4 Seconds (11.1-14.7)
[2023-07-31 09:19] LABS: Partial Thromboplastin Time 28.1 Seconds (22.3-36.8)
[2023-07-31 09:25] LABS: Alanine Aminotransferase 20 U/L (6-35); Albumin Level 4.3 g/dL (3.5-5.1); Alkaline Phosphatase 79 U/L (38-126); Anion Gap 7 mmol/L (4-12); Aspartate Amino Transferase 27 U/L (14-36); Bilirubin,Total 1.1 mg/dL (0.2-1.3); Blood Urea Nitrogen 8 mg/dL (7-17); Calcium 9.7 mg/dL (8.4-10.2); Carbon Dioxide 26 mmol/L (22-30); Chloride 107 mmol/L (98-107); Estimated CRCL calculation 65 ml/min; Estimated Glomerular Filt Rate > 60; Glucose 99 mg/dL (65-110); Lipase 169 U/L (23-300); Potassium 3.3 mmol/L (3.4-5.0); Sodium 140 mmol/L (137-145)
[2023-07-31 09:35] LABS: Troponin I < 0.012 ng/mL (0.000-0.034)
[2023-07-31 10:07] VITALS: BP 136/79; PULSE 79; RESP 19; O2SAT 100
[2023-07-31] MEDS: KCL 20 MEQ/SW 100 ML 100 ML 50 MEQ IVPB (10:50)
[2023-07-31] MEDS: SODIUM CHLORIDE 0.9% IV 500 ML 250 ML (10:51)
--- NOTE | 2023-07-31 11:34 | PC.NURSE ---
pt complaining of potassium burning through IV. IV site is normal, no swelling or redness. flushes without difficulty. slowed potassium rate to 25mL/hr.
[2023-07-31 11:40] VITALS: BP 135/76; PULSE 77; RESP 16; O2SAT 100
[2023-07-31 14:45] VITALS: BP 142/81; PULSE 89; RESP 18; O2SAT 100
== END 2023-07-31 14:45 | disposition home or self-care (01) ==
PROVIDERS: Emergency Provider Emergency Medicine; PCP Nurse Practitioner Family
DX: R00.0 Tachycardia, unspecified (principal); E87.6 Hypokalemia; E03.9 Hypothyroidism, unspecified; M32.9 Systemic lupus erythematosus, unspecified
CPT/HCPCS: 36415; 71046; 80053; 83690; 83735; 84443; 84484; 85025; 85610; 85730; 93005; 96365; 96366; 99284; J3480; J7030; J7040

== ENCOUNTER 2023-08-07 08:15 | Outpatient (CLI) | payer OTHER, SELFPAY ==
[2023-08-07 11:13] LABS: Parathyroid Intact 34.9 pg/mL (7.5-53.5)
[2023-08-07 11:21] LABS: Creatinine Urine 36.4 mg/dL
[2023-08-09 13:14] LABS: Ionized Calcium 4.9 mg/dL (4.7-5.5)
== END 2023-08-07 08:16 | disposition home or self-care (01) ==
LOC: ANHGOSHLAB 08:18
PROVIDERS: PCP Nurse Practitioner Family
DX: E21.3 Hyperparathyroidism, unspecified (principal); E27.8 Other specified disorders of adrenal gland
CPT/HCPCS: 36415; 82310; 82330; 82570; 83970

== ENCOUNTER 2023-08-28 07:10 | Outpatient (CLI) | payer OTHER, SELFPAY ==
[2023-08-28 07:57] LABS: Anion Gap 9 mmol/L (4-12); Blood Urea Nitrogen 8 mg/dL (7-17); Calcium 9.2 mg/dL (8.4-10.2); Carbon Dioxide 25 mmol/L (22-30); Chloride 108 mmol/L (98-107); Estimated Glomerular Filt Rate > 60; Glucose 97 mg/dL (65-110); Potassium 3.8 mmol/L (3.4-5.0); Sodium 142 mmol/L (137-145)
[2023-08-30 13:49] LABS: Metanephrine, Total Urine 194 mcg/24 h (182-739); Metanephrine, Urine 68 mcg/24 h (58-203); Normetanephrine, Urine 126 mcg/24 h (88-649)
[2023-09-03 14:43] LABS: Adrenocorticotropic Hormone 6 pg/mL (6-50)
== END 2023-08-28 07:11 | disposition home or self-care (01) ==
PROVIDERS: PCP Nurse Practitioner Family
DX: E27.8 Other specified disorders of adrenal gland (principal)
CPT/HCPCS: 36415; 80048; 82024; 82530; 83835

== ENCOUNTER 2023-09-14 09:46 | Emergency (ER) | payer OTHER, SELFPAY ==
[2023-09-14 09:52] VITALS: BP 183/92; PULSE 75; RESP 16; TEMP 37; O2SAT 100
--- NOTE | 2023-09-14 09:57 | ECG_ITS ---
SEE SCANNED COPY FOR CONFIRMED REPORT MTDD
[2023-09-14 10:36] LABS: Alanine Aminotransferase 18 U/L (6-35); Albumin Level 4.1 g/dL (3.5-5.1); Alkaline Phosphatase 48 U/L (38-126); Anion Gap 8 mmol/L (4-12); Aspartate Amino Transferase 21 U/L (14-36); Bilirubin,Total 0.8 mg/dL (0.2-1.3); Blood Urea Nitrogen 10 mg/dL (7-17); Calcium 8.9 mg/dL (8.4-10.2); Carbon Dioxide 25 mmol/L (22-30); Chloride 107 mmol/L (98-107); Estimated CRCL calculation 74 ml/min; Estimated Glomerular Filt Rate > 60; Glucose 102 mg/dL (65-110); Potassium 3.3 mmol/L (3.4-5.0); Sodium 140 mmol/L (137-145)
[2023-09-14 10:44] VITALS: BP 187/95; PULSE 72; RESP 12; O2SAT 100
[2023-09-14 11:52] VITALS: BP 146/93; PULSE 68; RESP 12; O2SAT 100
[2023-09-14 11:59] LABS: Basophils Percent Auto 0.1 % (0.2-1.2); Hematocrit 43.2 % (37.0-47.0); Hemoglobin 14.5 g/dL (12.0-15.0); Immature Granulocyte Absolute 0.04 K/mm3 (0.00-0.031); Immature Granulocyte Percent A 0.6 % (0-0.5); Lymphocytes Absolute Auto 1.12 K/mm3 (0.9-3.2); Mean Corpuscular HGB Conc 33.6 g/dl (32-36); Mean Corpuscular Volume 92.3 fl (80-100); Mean Platelet Volume 11.5 fl (7.4-10.4); Monocytes Absolute Auto 0.6 K/mm3 (0.1-0.6); Neutrophils Absolute Auto 5.3 K/mm3 (1.3-6.7); Neutrophils Percent Auto 75.3 % (45.5-73.1); Platelet Count Result 259 k/mm3 (150-375); Red Blood Count 4.68 M/mm3 (4.2-5.4); Red Cell Distribution Width 11.9 % (11.5-14.5)
[2023-09-14 12:09] LABS: Magnesium 2.2 mg/dL (1.6-2.3)
--- NOTE | 2023-09-14 12:54 | ED.RECABL ---
HPI - Recheck/Abnormal Lab/Rx General Chief Complaint: Recheck/Abnormal Lab/Rx Stated Complaint: low k+ symptoms , palpiations Time Seen by Provider: 09/14/23 11:57 Source: patient Mode of arrival: ambulatory Limitations: no limitations History of Present Illness HPI narrative: Patient presents with concerns for hypokalemia and intermittent palpitations. She has had recurrent hypokalemia and felt symptomatic. She was also having palpitations but her heart rate at the time was 70 which is unusual because it had previously been tachycardic when she had symptoms. This has been another chronic issue and she has worn an event monitor. She saw the report but has not yet followed up with Dr Forbes's office yet. She has also had hypertension, with BP reading 168/100 at home last night. She was told that it might be a diet issue and met with a bottom saw operator who didn't see any obvious issues. Patient has been drinking orange juice and taking her supplemental potassium chloride (previously 10mEq daily and now 20mEq/day as 10mEq BID since July). She is on metoprolol for palpitations. for her issues, she has undergone extensive work up for an adrenal adenoma and has ruled out pheochromocytoma (normal metanephrines) and aldosterone issues. Her cortisol had been sligtly elevated but was told not cliically significantly so. She is nervous because she is going to [place] in 2 weeks and doesn't want these issues to interfere with it. She does have enough medicine /refills to last. Related Data Home Medications Medication Instructions Recorded Confirmed norgestimate-ethinyl estradiol 1 tablet PO DAILY 03/01/19 08/15/23 0.18 mg/0.215mg/0.25mg-35 mcg(28)tablet (Ortho Tri-Cyclen (28)) potassium chloride 10 mEq 10 meq PO BID 08/07/23 08/15/23 tablet,extended release (Klor-Con) Allergies Allergy/AdvReac Type Severity Reaction Status Date / Time Penicillins Allergy Unknown Joint Pain Verified 09/14/23 10:45 [facility] Past Medical History Medical History Adrenal adenoma Chronic hypokalemia Hypothyroidism Lupus Surgical History Surgical History Hx of thyroidectomy (~2014) left thyroidectomy Family History Family History Mother Depression Hypertension Family history of allergic disorder Family history of hypothyroidism Family history of thyroid disease Father Family history of malignant neoplasm of thyroid, Onset Age: 70 Family history of malignant neoplasm, Onset Age: 70 Social History Social History 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 Never alcohol or drug use. Smoking status: Never smoker Alcohol intake: never Substance use: never Substance use type: does not use Lack of Transportation: No Lack of Food: Never True Current Housing: I Have Housing Concerned About Future Housing: No Difficulty Paying Gas/Electric Bills: No Difficulty Paying for Meds: No Currently Unemployed: No Education: Master's Degree or Higher Difficulty w/ Childcare or Family Care: No Living arrangements: with family Occupation/Education: occupation Additional occupation/education comments: Pharmacist Gender identity (if verbalized by the patient): Female Spiritual care concerns: No Agree to blood products: Yes Exam Narrative: GENERAL: Well-appearing, well-nourished, and in no acute distress. HEAD: Normocephalic, atraumatic. EYES: Non injected, non icteric ENT: Nares clear, no rhinorrhea or epistaxis. NECK: Supple. CHEST: Speaking in full sentences. No respiratory distress. HEART: Regular rate and rhythm. Not tachycardic on monitor during exam. ABDOMEN: Soft, nondistended. EXTREMITIES: Normal range of motion
[2023-09-14 13:09] VITALS: BP 172/97; PULSE 69; RESP 19; O2SAT 97
[2023-09-14] MEDS: POTASSIUM BICARBONATE 25 MEQ TABEF PO (13:09)
[2023-09-14] MEDS: SPIRONOLACTONE 12.5 MG TABLET PO (13:26)
[2023-09-14 13:30] VITALS: BP 163/85; PULSE 66; RESP 16; TEMP 36.7; O2SAT 100
== END 2023-09-14 13:33 | disposition home or self-care (01) ==
PROVIDERS: Physician Assistant; Emergency Provider Student in an Organized Health Care Education/Training Program; PCP Nurse Practitioner Family
DX: R00.2 Palpitations (principal); E87.6 Hypokalemia; M32.9 Systemic lupus erythematosus, unspecified; E89.0 Postprocedural hypothyroidism
CPT/HCPCS: 36415; 80053; 83735; 85025; 93005; 99283; A9270

== ENCOUNTER 2023-09-21 18:59 | Emergency (ER) | payer OTHER, SELFPAY ==
[2023-09-21 19:05] VITALS: BP 196/94; PULSE 85; RESP 18; TEMP 36.2; O2SAT 99
--- NOTE | 2023-09-21 19:25 | ECG_ITS ---
[facility] [address] Test Date: 2023-09-21 Pat Name: Maida Riley Department: Room: Gender: F Certified Medical Coding Specialist: Rudy : 1975 Requested By: Robert Quintana Order Number: [id number] Emanuel MD: Jasson Forbes D.O. Measurements Intervals [place] Rate: 61 P: 0 [place]: 0 QRS: 60 QRSD: 90 T: 64 QT: 411 QTc: 417 Interpretive Statements SINUS RHYTHM MINIMAL Q WAVES- LATERAL LEADS BASELINE ARTIFACT- I, II, III, AVR, AVL, AVF, V1-V6 BORDERLINE ECG No previous ECG available for comparison Electronically Signed On 09-21-2023 21:16:01 CDT by Jasson Forbes D.O.
--- NOTE | 2023-09-21 19:28 | ED.GENADULT ---
HPI - General Adult General Chief complaint: Recheck/Abnormal Lab/Rx Stated complaint: Tingling to ext,elevated BP multi c/o Time Seen by Provider: 09/21/23 19:17 History of Present Illness HPI narrative: The patient 48-year-old female who presents emergency department with chief complaint of generalized weakness and tingling sensation in her arms and legs patient reports that she has history of hypokalemia reports that she was in the emergency department fairly recently and was given additional potassium. The patient states that she started having episodes were she has been feeling just generally unwell reports she felt weak worse in her legs and symmetrical on both sides the patient also reports that she has had tingling and a pins and needle sensation in bilateral hands and bilateral lower extremities. Patient reports no trauma denies fever reports that she has had issues with maintaining her potassium levels reports he has seen Endocrinology the patient reports that her tingling has resolved at this point but has also noticed that her blood pressures been running elevated. The patient states that it has been in the 160s to 180s for systolic the patient states that she normally does not have an elevated blood pressure and reports that she does take metoprolol but this is for palpitations. Related Data Home Medications Medication Instructions Recorded Confirmed norgestimate-ethinyl estradiol 1 tablet PO DAILY 03/01/19 08/15/23 0.18 mg/0.215mg/0.25mg-35 mcg(28)tablet (Ortho Tri-Cyclen (28)) potassium chloride 10 mEq 10 meq PO BID 08/07/23 08/15/23 tablet,extended release (Klor-Con) Allergies Allergy/AdvReac Type Severity Reaction Status Date / Time Penicillins Allergy Unknown Joint Pain Verified 09/21/23 19:40 Review of Systems Review of Systems: A 10 system review of systems was completed on the patient and is negative except for what is stated in the HPI. Nursing and ancillary documentation was reviewed. 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 Never alcohol or drug use. Smoking status: Never smoker Alcohol intake: never Substance use: never Substance use type: does not use Lack of Transportation: No Lack of Food: Never True Current Housing: I Have Housing Concerned About Future Housing: No Difficulty Paying Gas/Electric Bills: No Difficulty Paying for Meds: No Currently Unemployed: No Education: Master's Degree or Higher Difficulty w/ Childcare or Family Care: No Living arrangements: with family Occupation/Education: occupation Additional occupation/education comments: Pharmacist Gender identity (if verbalized by the patient): Female Spiritual care concerns: No Agree to blood products: Yes Exam Narrative: GENERAL: Well-appearing, well-nourished, and in no acute distress. HEAD: Normocephalic, atraumatic. EYES: PERRLA and EOMI. ENT: Nares clear, no rhinorrhea or epistaxis. Mucous membranes moist. NECK: Supple. CHEST: Clear to auscultation. No respiratory distress. HEART: Regular rate and rhythm. No murmur heard. Normal peripheral pulses.
[2023-09-21 19:39] VITALS: BP 175/113; PULSE 64; RESP 15; O2SAT 97
[2023-09-21 19:42] LABS: Basophils Percent Auto 0.1 % (0.2-1.2); Eosinophils Percent Auto 0.1 % (0-4.4); Hematocrit 41.4 % (37.0-47.0); Hemoglobin 14.3 g/dL (12.0-15.0); Immature Granulocyte Absolute 0.05 K/mm3 (0.00-0.031); Immature Granulocyte Percent A 0.7 % (0-0.5); Lymphocytes Absolute Auto 1.25 K/mm3 (0.9-3.2); Lymphocytes Percent Auto 17.1 % (18.3-44.2); Mean Corpuscular HGB Conc 34.5 g/dl (32-36); Mean Corpuscular Hemoglobin 31.4 pg (26-34); Mean Corpuscular Volume 90.8 fl (80-100); Mean Platelet Volume 10.2 fl (7.4-10.4); Monocytes Absolute Auto 0.6 K/mm3 (0.1-0.6); Monocytes Percent Auto 8.8 % (2.6-8.5); Neutrophils Absolute Auto 5.4 K/mm3 (1.3-6.7); Neutrophils Percent Auto 73.2 % (45.5-73.1); Platelet Count Result 230 k/mm3 (150-375); Red Blood Count 4.56 M/mm3 (4.2-5.4); Red Cell Distribution Width 11.9 % (11.5-14.5); White Blood Count 7.3 K/mm3 (4.5-10.0)
[2023-09-21 19:53] LABS: Alanine Aminotransferase 18 U/L (6-35); Alkaline Phosphatase 48 U/L (38-126); Anion Gap 3 mmol/L (4-12); Aspartate Amino Transferase 22 U/L (14-36); Blood Urea Nitrogen 10 mg/dL (7-17); Calcium 8.9 mg/dL (8.4-10.2); Carbon Dioxide 27 mmol/L (22-30); Chloride 108 mmol/L (98-107); Estimated CRCL calculation 73 ml/min; Estimated Glomerular Filt Rate > 60; Glucose 114 mg/dL (65-110); Magnesium 2.2 mg/dL (1.6-2.3); Potassium 3.6 mmol/L (3.4-5.0); Sodium 138 mmol/L (137-145)
[2023-09-21 20:34] LABS: Appearance Urine Turbid (Clear); Bacteria Urine None Seen /hpf; Bilirubin Urine Negative (Negative); Blood Urine 3+ (Negative); Color Urine Yellow (Yellow); Glucose Urine UA Negative (Negative); Ketones Urine Negative (Negative); Leukocyte Esterase Ur Negative LEU/UL (Negative); Nitrate Urine Negative (Negative); Non Pathogenic Casts 0-2; Protein Urine Negative (Negative); RBC Urine >100 /hpf (0-2); Specific Grav Ur 1.017 (1.001-1.035); Squamous Epithelial Cell Urine None Seen /hpf (Few); Urobilinogen Urine 0.2 mg/dL (<2.0); WBC Urine 0-5 /hpf (0-3)
[2023-09-21 20:38] LABS: Add Urine Microscopic? YES
[2023-09-21 21:09] VITALS: BP 159/87; PULSE 69; RESP 18; O2SAT 99
[2023-09-21] MEDS: POTASSIUM CHLORIDE 20 MEQ PACKET (FOR LIQUID) 40 MEQ PO (22:12)
== END 2023-09-21 22:14 | disposition home or self-care (01) ==
PROVIDERS: Emergency Provider Emergency Medicine; PCP Nurse Practitioner Family
DX: E87.6 Hypokalemia (principal); R03.0 Elevated blood-pressure reading, without diagnosis of hypertension; E89.0 Postprocedural hypothyroidism; M32.9 Systemic lupus erythematosus, unspecified; R94.31 Abnormal electrocardiogram [ECG] [EKG]
CPT/HCPCS: 36415; 80053; 81001; 83735; 85025; 93005; 99283; A9270

== ENCOUNTER 2023-09-25 08:42 | Outpatient (CLI) | payer OTHER, SELFPAY ==
[2023-09-25 13:10] LABS: Potassium 4.1 mmol/L (3.4-5.0)
== END 2023-09-25 08:43 | disposition home or self-care (01) ==
LOC: ANHGOSHLAB 08:43
PROVIDERS: PCP Nurse Practitioner Family; Visit Provider Nurse Practitioner Family
DX: E87.6 Hypokalemia (principal)
CPT/HCPCS: 36415; 84132

== ENCOUNTER 2023-10-11 08:10 | Outpatient (CLI) | payer OTHER, SELFPAY | END 2023-10-11 08:11 | disposition home or self-care (01) | LOC: ANHGOSHLAB 08:12 | PROVIDERS: PCP Nurse Practitioner Family; Visit Provider Student in an Organized Health Care Education/Training Program | DX: E87.6 Hypokalemia (principal) | CPT/HCPCS: 36415; 84132 ==

== ENCOUNTER 2023-11-11 07:15 | Outpatient (RCR) | payer OTHER, SELFPAY ==
[2023-11-17 18:48] LABS: Cortisol, Saliva 0.08 mcg/dL
[2023-11-17 19:08] LABS: Cortisol, Saliva 0.08 mcg/dL
[2023-11-18 17:23] LABS: Cortisol, Saliva 0.08 mcg/dL
== END 2024-02-07 23:59 | disposition home or self-care (01) ==
LOC: ANHLAB 07:15
PROVIDERS: PCP Student in an Organized Health Care Education/Training Program
DX: E27.8 Other specified disorders of adrenal gland (principal)
CPT/HCPCS: 82530

== ENCOUNTER 2023-11-17 08:03 | Outpatient (CLI) | payer OTHER, SELFPAY ==
[2023-11-17 19:08] LABS: Potassium 4.1 mmol/L (3.4-5.0)
== END 2023-11-17 08:04 | disposition home or self-care (01) ==
LOC: ANHGOSHLAB 08:05
PROVIDERS: PCP Student in an Organized Health Care Education/Training Program; Visit Provider Student in an Organized Health Care Education/Training Program
DX: E87.6 Hypokalemia (principal)
CPT/HCPCS: 36415; 84132

== ENCOUNTER 2023-12-28 12:45 | Outpatient (CLI) | payer OTHER, SELFPAY ==
[2024-01-07 12:48] LABS: Dexamethasone <20 ng/dL
== END 2023-12-28 12:46 | disposition home or self-care (01) ==
LOC: ANHGOSHLAB 12:48
PROVIDERS: PCP Student in an Organized Health Care Education/Training Program; Visit Provider Internal Medicine
DX: D35.00 Benign neoplasm of unspecified adrenal gland (principal); R03.0 Elevated blood-pressure reading, without diagnosis of hypertension; E03.9 Hypothyroidism, unspecified
CPT/HCPCS: 36415; 80299

== ENCOUNTER 2024-01-09 10:11 | Outpatient (CLI) | payer OTHER, SELFPAY ==
[2024-01-09 14:32] LABS: Anion Gap 10 mmol/L (4-12); Blood Urea Nitrogen 10 mg/dL (7-17); Calcium 8.8 mg/dL (8.4-10.2); Carbon Dioxide 27 mmol/L (22-30); Chloride 101 mmol/L (98-107); Estimated Glomerular Filt Rate > 60; Glucose 104 mg/dL (65-110); Potassium 3.3 mmol/L (3.4-5.0); Sodium 138 mmol/L (137-145)
== END 2024-01-09 10:12 | disposition home or self-care (01) ==
LOC: ANHGOSHLAB 10:13
PROVIDERS: PCP Student in an Organized Health Care Education/Training Program; Visit Provider Student in an Organized Health Care Education/Training Program
DX: E87.6 Hypokalemia (principal)
CPT/HCPCS: 36415; 80048

== ENCOUNTER 2024-01-16 13:21 | Outpatient (CLI) | payer OTHER, SELFPAY ==
[2024-01-16 14:11] LABS: Potassium 3.4 mmol/L (3.4-5.0)
== END 2024-01-16 13:22 | disposition home or self-care (01) ==
LOC: ANHLAB 13:23
PROVIDERS: PCP Student in an Organized Health Care Education/Training Program; Visit Provider Student in an Organized Health Care Education/Training Program
DX: E87.6 Hypokalemia (principal)
CPT/HCPCS: 36415; 84132

== ENCOUNTER 2024-01-29 06:50 | Outpatient (CLI) | payer OTHER, SELFPAY ==
[2024-01-29 07:33] LABS: Potassium 3.7 mmol/L (3.4-5.0)
== END 2024-01-29 06:51 | disposition home or self-care (01) ==
PROVIDERS: PCP Student in an Organized Health Care Education/Training Program; Visit Provider Student in an Organized Health Care Education/Training Program
DX: E87.6 Hypokalemia (principal)
CPT/HCPCS: 36415; 84132

== ENCOUNTER 2024-02-23 06:50 | Outpatient (CLI) | payer OTHER, SELFPAY ==
[2024-02-23 13:35] LABS: Vitamin D 25 Hydroxy 14.8 ng/mL
== END 2024-02-23 06:51 | disposition home or self-care (01) ==
PROVIDERS: PCP Student in an Organized Health Care Education/Training Program; Visit Provider Student in an Organized Health Care Education/Training Program
DX: E03.9 Hypothyroidism, unspecified (principal); E55.9 Vitamin D deficiency, unspecified
CPT/HCPCS: 36415; 82306; 84443

== ENCOUNTER 2024-04-25 16:02 | Outpatient (CLI) | payer OTHER, SELFPAY ==
[2024-04-25 16:43] LABS: Potassium 3.6 mmol/L (3.4-5.0)
== END 2024-04-25 16:03 | disposition home or self-care (01) ==
LOC: ANHLAB 16:03
PROVIDERS: PCP Student in an Organized Health Care Education/Training Program; Visit Provider Student in an Organized Health Care Education/Training Program
DX: R00.2 Palpitations (principal)
CPT/HCPCS: 36415; 84132

== ENCOUNTER 2024-06-01 09:09 | Emergency (ER) | payer OTHER, SELFPAY ==
[2024-06-01 09:50] VITALS: BP 134/92; PULSE 108; RESP 20; TEMP 36.8; O2SAT 99
--- NOTE | 2024-06-01 10:10 | ED.SKABFB ---
HPI - Skin/Abscess/Foreign Bdy General Chief complaint: Allergic Reaction Stated complaint: RASH Time Seen by Provider: 06/01/24 10:00 Source: patient Mode of arrival: ambulatory Limitations: no limitations History of Present Illness HPI narrative: Maida is a 49 year old female patient presenting to the clinic today with complaints of a rash on her legs, abdomen, and arms that started approximately 4-5 days ago. She reports that she had an adrenalectomy over a week ago. States few days after the surgery she developed a itchy, red, scaly appearing rash on her skin. States his appears to be spreading. Denies any fevers, chills, or body aches. No draining. Is taking hydrocortisone oral daily. Denies any respiratory distress, chest pain, or shortness of breath. Thinks she may have allergic reaction to the wipes that was used during surgery. She contacted her surgery team and they recommend being evaluated and started on a topical steroid. Related Data Home Medications ?Medication ?Instructions ?Recorded ?Confirmed ?Last Taken ?Type norgestimate-ethinyl estradiol 1 tablet PO DAILY 03/01/19 06/01/24 Unknown History 0.18 mg/0.215mg/0.25mg-35 mcg(28)tablet (Ortho Tri-Cyclen (28)) hydroxychloroquine 200 mg tablet 200 mg PO DAILY 09/25/23 06/01/24 Unknown History amlodipine 5 mg tablet mg 06/01/24 Unknown History hydrocortisone 10 mg tablet mg 06/01/24 Unknown History oxycodone 5 mg tablet mg 06/01/24 Unknown History tamsulosin 0.4 mg capsule mg PO 06/01/24 Unknown History Allergies Allergy/AdvReac Type Severity Reaction Status Date / Time Penicillins Allergy Unknown Joint Pain Verified 02/16/24 08:59 Review of Systems Review of Systems: Pertinent positives per HPI. Patient denies any fever, chills, headache, visual changes, dizziness, cough, runny nose, sore throat, shortness of breath, chest pain, palpitations, nausea, vomiting, diarrhea, constipation, abdominal pain, or any urinary issues. 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 Never alcohol or drug use. Caffeine-none Smoking status: Never smoker Alcohol intake: never Substance use: never Substance use type: does not use Do You Feel Safe in your Home?: Yes Lack of Transportation: No Lack of Food: Never True Current Housing: I Have Housing Concerned About Future Housing: No Difficulty Paying Gas/Electric Bills: No Difficulty Paying for Meds: No Currently Unemployed: No Education: Master's Degree or Higher Difficulty w/ Childcare or Family Care: No Living arrangements: with family Occupation/Education: occupation Additional occupation/education comments: Pharmacist Gender identity (if verbalized by the patient): Female Spiritual care concerns: No Agree to blood products: Yes Comments At the time of my signature, I reviewed and agree with the nursing past medical, surgical, social, and family history. There is no relevant family history pertinent to the patient complaint. Exam Narrative: General: Well-developed, well nourished, in no apparent distress Head: Normocephalic, atraumatic. Cardio: Regular rate and rhythm, s1 and s2 normal, no murmur appreciated. Resp: Clear to auscultation bilaterally, no rhonchi, rales, wheezing or rubs. Integumentary: [place], warm, and dry, red, slightly raised, itchy, and scaly appearing on bilateral medial thighs, abdomen, and arms. Course Course Emergency Course: Portions of this record may have been created with voice recognition software. Level of Care: Express Care Visit Vital Signs Vital signs: Vital Signs Temperature 36.8 C 06/01/24 09:50 Pulse Rate 108 H 06/01/24 09:50 Respiratory Rate 20 06/01/24 09:50 Blood Pressure 134/92 H 06/01/24 09:50 Pulse Oximetry 99 02/08/25 09:50 Oxygen Delivery Room Air 06/01/24 09:50 Temperature 36.8 C 06/01/24 09:50 Pulse Rate 108 H 06/01/24 09:50 Respiratory Rate 20 06/01/24 09:50 Blood Pressure 134/92 H 06/01/24 09:50 Pulse Oximetry 99 06/01/24 09:50 Oxygen Delivery Room Air 06/01/24 09:50 Vital signs reviewed MDM - Skin/Abscess/Foreign Bdy MDM Narrative Medical decision making narrative: At the time of visit patient is resting comfortably on the exam table. Patient appears to be nontoxic. Plan: I suspect patient has a contact dermatitis rash. Prescription for triamcinolone and Pepcid was sent to the pharmacy. Supportive measures were discussed with the patient and they voiced understanding discharge instructions and agrees to treatment plan. Return precautions reviewed Differential Diagnosis Differential diagnosis: Likely abscess of skin or subcutaneous tissue, viral exanthem, dermatophytosis, urticaria, herpes zoster, allergic reaction to drug, cellulitis, eczema, insect bites, impetigo and contact dermatitis Discharge Plan Discharge Clinical Impression: Dermatitis Patient Disposition: Home, Self-Care Condition: Stable Instructions: Antibiotic Form, Dermatitis (ED) Additional Instructions: Apply triamcinolone cream as directed Avoid hot showers May apply non scented moisturizer lotion such as Aquaphor, Lubriderm, or Cetaphil Avoid scratching and this can cause a secondary infection May take benadryl 25-50mg every 6 hours as needed for itching. Follow up with your PCP in 3-5 days if symptoms persist or sooner if they worsen Go to the Emergency Room if symptoms worsen- fever, rash spreading with treatment, shortness of breath, tongue swelling, drooling, or chest pain Patient Language: Ghanaian Prescriptions: New triamcinolone acetonide 0.1 % cream 1 applic topical BID 7 Days Qty: 30 0RF famotidine [Pepcid] 40 mg tablet 40 mg PO DAILY 10 Days Qty: 10 0RF No Action amlodipine 5 mg tablet tamsulosin 0.4 mg capsule PO hydrocortisone 10 mg tablet oxycodone 5 mg tablet norgestimate-ethinyl estradiol [Ortho Tri-Cyclen (28)] 0.18/0.215/0.25 mg-35 mcg (28) tablet 1 tablet PO DAILY hydroxychloroquine 200 mg tablet 200 mg PO DAILY metoprolol succinate 25 mg tablet extended release 24 hr 25 mg PO DAILY Qty: 90 0RF amlodipine 2.5 mg tablet 2.5 mg PO DAILY Qty: 90 3RF levothyroxine 112 mcg tablet 112 mcg PO DAILY Qty: 90 1RF cholecalciferol (vitamin D3) 1,250 mcg (50,000 unit) tablet 1,250 mcg PO WEEKLY Qty: 8 0RF potassium chloride [Klor-Con 10] 10 mEq tablet extended release See Rx Instructions PO BID Qty: 90 2RF Rx Instructions: 20 mEq in am and 10 mEq in pm. Follow-up/Referrals: Nilton Mckinney APRN [Primary Care Provider] - Time of Disposition: 10:13 Quality NIHSS Nursing Documentation ED NIHSS nursing documentation: reviewed/agree
== END 2024-06-01 10:29 | disposition home or self-care (01) ==
PROVIDERS: Emergency Provider Nurse Practitioner Family; PCP Student in an Organized Health Care Education/Training Program
DX: L30.9 Dermatitis, unspecified (principal); E03.9 Hypothyroidism, unspecified; M32.9 Systemic lupus erythematosus, unspecified; Z90.89 Acquired absence of other organs
CPT/HCPCS: 99203; G0463

== ENCOUNTER 2024-08-22 07:10 | Outpatient (CLI) | payer OTHER, SELFPAY ==
--- NOTE | ~2024-08-22 | MM_ITS ---
EXAMINATION: MM screening [facility] BI w jillian HISTORY: Screening TECHNIQUE: Craniocaudal and mediolateral oblique 3-D tomosynthesis images were obtained and synthetic 2-D images were generated. CAD analysis was submitted and interpreted. COMPARISON: Comparison to multiple prior studies sequentially, with oldest reviewed study dated 01/05. BREAST PARENCHYMAL COMPOSITION: Dense: The breasts are extremely dense, which lowers the sensitivity of mammography. FINDINGS: There is focal asymmetry in the upper inner quadrant of the left breast posteriorly which i s not significantly changed. There is no evidence of suspicious mass, calcification, or architectural distortion to suggest malignancy in either breast. There has been no suspicious interval change. IMPRESSION: 1. No mammographic evidence of malignancy. 2. Recommend routine screening mammography in one year. BI-RADS Category 2: Benign finding(s). Reviewed, dictated and finalized at location A.
--- OUTSIDE RECORDS SUMMARY | 2024-08-22 07:13 | XMS_ITS | Clinical Summary ---
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 Gender Identity Not on file Sexual Orientation Not on file Plan of Treatment Health Maintenance Due Date Last Done Comments Cervical Cancer Screening Pa p Smear (Age 30 to 64) Every 3 Years 1977 Colorectal Cancer Screening Colonoscopy (10 Years) 1977 Annual Physical 02/27/1980 Hepatitis C 1995 DTaP, Tdap and Td Vaccines ( 1 - Tdap) 02/27/1996 Hepatitis B Vaccines (1 of 3 - 19+ 3-dose series) 02/27/1996 Cervical Cancer Screening Pa p with HPV Testing (Age 30 to 64) Every 5 Years 2007 Cervical Cancer Screening wi HPV 2007 Mammogram Screening 2017 COVID-19 Vaccine (2023-2 5 season) 2023 06/02/2020, 05/05/2020 Meningococcal B Vaccine Aged Out No l onger eligible based on patient's age to complete this topic Meningococcal Vaccine Aged Out No elena larissa eligible based on patient's age to complete this topic Pneumococcal Vaccine: Pediatrics (0 to 5 Years) and At-Risk Patients (6 to 49 Years) Aged Out No longer eligible b ased on patient's age to complete this topic RSV Immunizations Under 20 Months Aged Out No longer eligible b ased on patient's age to complete this topic
--- OUTSIDE RECORDS SUMMARY | 2024-08-22 07:13 | XMS_ITS | Clinical Summary ---
Author Organization [facility] Address [address] [facility] [place] [address] Care Team Providers Care Gas Tender Name Role Phone Faye Nilton Primary Care Provider Unavailabl e Source Comments [facility],non-owned Affiliates and Associated Physician Practices is amultiple site organization consisting of ambulatory clinics and hospital sitesin [place], [place], [place] and [place]. This disclosure is being madepursuant to the Care Everywhere program and may not contain all information available regarding this patient. Last updated 18.[facility] Allergies Active Allergy Reactions Criticality Noted Date Comments Penicillins Unknown 07/24/2017 As Medications * Be aware that medications may not be up to date on this document. Alwaysverify current medications with the patient. levothyroxine (Synthroid) 112 MCG tablet Take 1 (one) tablet by mouth once daily 4 Active hydroxychloroq uine (Plaquenil) 200 MG tablet Take 1 (one) tablet by mouth once daily 3 Active norgestim-eth estrad triphasic 0.18/0.215/0.2 5 MG-35 MCG tablet Take 1 (one) tablet by mouth once daily 4 Active potassium chloride ER 10 MEQ tablet Take 2 (two) tablets by mouth 2 times daily 90 tablet 3 4 Active Additional Information Patient taking differently:20 mEq Oral,(No frequency reported), 2 Tablets in the am/1 in the pm, Reported on 04/15/2024 VITAMIN D, CHOLECALCIFERO L, PO Take 2,000 Int'l Units/day by mouth once daily Active biotin 2.5 MG tablets Take 1 (one) tablet by mouth once daily Active oxyCODONE, immediate release, (Roxicodone) 5 MG tabletIndicati ons:Adenoma of right adrenal gland Take 1 (one) tablet by mouth every 6 hours as needed 15 tablet 5 Active Additional Information Patient not taking.Reported on 06/07/2024 acetaminophen (Tylenol) 325 MG tablet Take 2 (two) tablets by mouth every 6 hours as needed for Pain (Dustin round the clock every 6 hours for next 3 days and then as needed.) Maximum allowable Acetaminophen amount = 4 Grams (4000 mg) / 24 hours. 5 Active Additional Information Patient not taking.Reported on 06/07/2024 calcium carbonate (Tums) 500 MG chew tablet Take 1 (one) tablet by mouth 3 times daily with meals 30 tablet 1 5 Active tamsulosin (Flomax) 0.4 MG capsule Take 1 (one) capsule by mouth once daily At the same time every day after a meal. 7 capsule 5 Active Additional Information Patient not taking.Reported on 06/07/2024 cyclobenzaprin e (Flexeril) 5 MG tablet Take 0.5 (one-half) tablet by mouth 3 times daily as needed 15 tablet 5 Active Additional Information Patient not taking.Reported on 06/07/2024 metoprolol succinate XL 24hr (Toprol XL) 25 MG tablet Take 1 (one) tablet by mouth once daily 90 tablet 2 5 Active famotidine (Pepcid) 40 MG tablet TAKE 1 TABLET BY MOUTH EVERY DAY FOR 10 DAYS 5 Active triamcinolone acetonide (Kenalog) 0.1 % cream 1 APPLIC TOPICALLY TWICE A DAY FOR 7 DAYS 5 Active hydrocortisone (Cortef) 10 MG tablet Take 15 mg early am and 5 early afternoon 180 tablet 3 5 Active Syringe/Needle , Disp, (SYRINGE 3CC/20GX1 ) 20G X 1 3 ML MISC Use 1 Each as needed For dexamethasone injection 10 Each 1 5 Active dexAMETHasone (Decadron) 100 MG/10ML injection 0.4 mL by Intravenous route as needed for Nausea/Vomiting For adrenal crisis 10 mL 1 5 Active dexAMETHasone (Decadron) 4 MG/ML injection 4mg by intramuscular injection route as needed for adrenal crisis daily prn 2 mL 3 Active Syringe/Needle , Disp, (SYRINGE 3CC/20GX1 ) 20G X 1 3 ML MISC Use 1 Each as needed For dexamethasone injection for adrenal crisis 50 Each 3 Active Active Problems Problem Noted Date Diagnosed Date Adrenal insufficiency 06/21/2024 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 05/23/2024 Encounters Date Type Department Care Team Description 08/17/2024 Results Follow-Up [facility] - Endocrinology [address] [place] [phone] Pascual Parker MD 08/16/2024 Orders Only [facility] - Endocrinology [address] [place] [phone] Pascual Parker MD Hypokalemia 08/09/2024 Orders Only [facility] [address] [place] [phone] Pascual Parker MD Adrenal insufficiency (HCC) 08/02/2024 Orders Only [facility] [address] [place] [phone] Pascual Parker MD Hypokalemia 07/19/2024 Orders Only [facility] End[facility]ology [address] [place] [phone] Pascual Parker MD Hypokalemia 07/18/2024 Orders Only [facility] [address] [place] [phone] Pascual Parker MD 07/05/2024 Orders Only [facility] End[facility]ology [address] [place] [phone] Pascual Parker MD Hypokalemia 07/04/2024 Refill [facility] [address] [place] [phone] Pascual Parker MD MEDICATION REFILL 07/02/2024 Orders Only [facility] - Endocrinology [address] [place] [phone] Pascual Parker MD 06/21/2024 10:20 AM BRICK TOSSER Office Visit [facility] - Endocrinology [address] [place] [phone] Pascual Parker MD Adrenal insufficiency (Primary Dx); Adenoma of right adrenal gland; Hypokalemia 06/21/2024 Travel 06/18/2024 Telephone [facility] - Endocrinology [address] [place] [phone] Pascual Parker MD Appointment 06/18/2024 Orders Only [facility] - Endocrinology [address] [place] [phone] Pascual Parker MD Adrenal insufficiency 06/17/2024 Refill [facility] - Internal Med [address] [place] [phone] Pascual Parker MD MEDICATION REFILL 06/07/2024 9:00 AM BRICK TOSSER Office Visit [facility] [address] [place] [phone] Jaqui Angel MD Adrenal adenoma, left (Primary Dx) 06/07/2024 Travel 05/29/2024 Orders Only [facility] Surgery [address] [place] [address] Yaron Barahona MD 05/23/2024 9:09 AM BRICK TOSSER - 05/25/2024 4:54 PM BRICK TOSSER Hospital Encounter [facility] 7S ACUTE [address] [place] [address] Jaqui Angel MD Surgery General Discharge Disposition: Home or Self Care from Last 3 Months Family History Medical History Relation Name Comments Lymphoma Father Thyroid Disease Father cancer Depression Mother Hypertension Mother Thyroid Disease Mother Relation Name Status Comments Father Mother Social History Tobacco Use Types Packs/Day Years Used Date Smoking Tobacco: Never Smokeless Tobacco: Never Tobacco Cessation:Counseling Given: Not Answered Alcohol Use Standard Drinks/Week Comments Never 0 (1 standard drink = 0.6 oz pur e alcohol) AUDIT-C Answer Date Recorded Q1: How often do you have a drink containing alcohol? Never 05/23/2024 Q2: How many drinks containi ng alcohol do you have on a typical day when you are drinking? Patient does not drink Q3: How often do you have si x or more drinks on one occasion? Never 05/23/2024 Overall Financial Resource Strain (CARDIA) Answe r Date Recorded How hard is it for you to pa y for the very basics like food, housing, medical care, and heating? Not hard at all 05/23/2024 [facility] [place] of Occupat ional Health - Occupational Stress Questionnaire Answer Date Recorded Do you feel stress - tense, restless, nervous, or anxious, or unable to sleep at night because your mind is troubled all the time - these days? Not at all 05/23/2024 Hunger Vital Sign Answer Date Recorded Within the past 12 months, y ou worried that your food would run out before you got the money to buy more. Never true 05/23/19 25 Within the past 12 months, t he food you bought just didn't last and you didn't have money to get more. Never true 05/23/2024 PRAPARE - Transportation Answer Date Re corded In the past 12 months, has l ack of transportation kept you from medical appointments or from getting medications? No 04/26 In the past 12 months, has l ack of transportation kept you from meetings, work, or from getting things needed for daily living? No 05/23/2024 Housing Stability Vital Sign Answer Roger e Recorded In the last 12 months, was t here a time when you were not able to pay the mortgage or rent on time? No 05/23/2024 In the past 12 months, how m any times have you moved where you were living? 1 05/23/2024 At any time in the past 12 m [facility], were you homeless or living in a alf (including now)? No 05/23/2024 Comments No Sex and Gender Information Value Date Recorded Sex Assigned at Not on file Legal Sex Female 1:56 PM CDT Gender Identity Not on file Sexual Orientation Not on file Last Filed Vital Signs Vital Sign Reading Time Taken Comments Blood Pressure 106/70 06/21/2024 10:17 AM BRICK TOSSER Pulse 105 06/21/2024 10:17 AM BRICK TOSSER Temperature 36.8 C (98.2 F) 06/07/2024 9:04 AM BRICK TOSSER Respiratory Rate 12 06/07/2024 9:04 AM BRICK TOSSER Oxygen Saturation 98% 06/21/2024 10:17 AM BRICK TOSSER Inhaled Oxygen Concentration - - Weight 55.3 kg (122 lb) 06/21/2024 10:17 AM BRICK TOSSER Height 165.1 cm (5' 5 ) 06/21/2024 10:17 AM BRICK TOSSER Body Mass Index 20.3 06/21/2024 10:17 AM BRICK TOSSER Plan of Treatment Upcoming Encounters Date Type Department Care Team (Late st Contact Info) Description 10/11/2024 9:20 AM CDT Office Visit [facility] - Endocrinology [address] [place] [address], [place] [phone] Pascual Parker MD [address] [place] [address] [place] [address] Health Maintenance Due Date Last Done Comments COLOGUARD (AGES 45-75) - COL ON CA SCREENING 1977 COLON MONITORING 1977 COLONOSCOPY - COLON CA SCREENING 1977 CT COLONOGRAPHY - COLON CA SCREENING 1977 Colorectal Cancer Screening 1977 FIT - COLON CA SCREENING 1977 FLEX SIG - COLON CA SCREENING 1977 LIPID TESTING 1977 MAMMOGRAM 1977 PAP SMEAR 1977 HIV SCREENING 02/27/1992 HEPATITIS C SCREENING 02/22/1995 DTAP/TDAP/TD VACCINES (1 - Tdap) 02/27/1996 HEPATITIS B VACCINE (1 of 3 - 19+ 3-dose series) 02/27/1996 COVID-19 VACCINE (3 - 2023-2 5 season) 2023 06/02/2020, 05/05/2020 DEPRESSION SCREENING 04/24/2024 INFLUENZA VACCINE (Season Ended) 2024 ZOSTER VACCINE (1 of 2) 2027 HIB VACCINE Aged Out No longer eligi ble based on patient's age to complete this topic HPV VACCINE Aged Out No longer eligi ble based on patient's age to complete this topic MENINGOCOCCAL (Group B) VACCINE SHARED DECISION-MAKING Aged Out No longer eligible based on patient's age to complete this topic MENINGOCOCCAL GROUPS A/C/Y/W VACCINE Aged Out No longer eligible b ased on patient's age to complete this topic PNEUMOCOCCAL VACCINE Aged Out No long er eligible based on patient's age to complete this topic Procedures Procedure Name Priority Date/Time Associated Diagnosis Comments CORTISOL BLOOD AM Routine 08/15/2024 7:1 8 AM CDT Adrenal insufficiency (HCC) CORTISOL BLOOD AM 07/18/2024 7:1 9 AM CDT CORTISOL BLOOD AM Routine 06/20/2024 7:1 9 AM BRICK TOSSER Adrenal insufficiency BASIC METABOLIC PANEL (CALCIUM TOTAL) 05/29/2024 10:08 AM BRICK TOSSER PHOSPHORUS BLOOD 05/29/2024 10:0 8 AM BRICK TOSSER MAGNESIUM BLOOD 05/29/2024 10:08 AM BRICK TOSSER VITAMIN D 25-HYDROXY AM Draw 05/25/2024 5:17 AM BRICK TOSSER Adenoma of right adrenal gland PTH INTACT W/O CALCIUM AM Draw 05/25/2024 5:17 AM BRICK TOSSER Adenoma of right adrenal gland CALCIUM IONIZED WHOLE BLOOD AM Draw 05/25/2024 5:17 AM BRICK TOSSER Adenoma of right adrenal gland PHOSPHORUS BLOOD Timed 05/25/2024 5:17 AM BRICK TOSSER Adenoma of right adrenal gland MAGNESIUM BLOOD Timed 05/25/2024 5:17 AM BRICK TOSSER Adenoma of right adrenal gland CBC W AUTO DIFFERENTIAL Timed 05/25/2024 5:17 AM BRICK TOSSER Adenoma of right adrenal gland BASIC METABOLIC PANEL (CALCIUM TOTAL) Timed 05/25/2024 5:17 AM BRICK TOSSER Adenoma of right adrenal gland from Last 3 Months Results * (ABNORMAL) CORTISOL BLOOD AM (08/15/2024 7:18 AM CDT) Only the most recent of3 resultswithin the time period is included. Cortisol AM 3.6(L) mcg/dL [facility] Comment: Reference Range 8 a.m. (7-9 a.m.) Specimen: 4.0-22.0 REPORT COMMENT: FASTING:YES Test Performed at: [facility] [address] [place] [address] ISAEL LEON MD Blood BLOOD SPECIMEN / Unknown 08/15/2024 7:18 AM CDT 08/15/2024 7:18 AM CDT Pascual Parker MD LAB - CHEMISTRY ORDERABLES Final Result [address] [address] * BASIC METABOLIC PANEL (CALCIUM TOTAL) (05/29/2024 10:08 AM BRICK TOSSER) Only the most recent of2 resultswithin the time period is included. Glucose 94 65 - 99 mg/dL [facility] Comment: Fasting reference interval BUN 9 7 - 25 mg/dL [facility] Creatinine 0.72 0.50 - 0.99 mg/dL [facility] eGFR by Cystatin C 104 > OR = 60 mL/min/1. 73m2 [facility] BUN/Creatinine Ratio SEE NOTE: 6 - 22 (calc) [facility] Comment: Not Reported: BUN and Creatinine are within reference range. Sodium 141 135 - 146 mmol/L [facility] Potassium 4.1 3.5 - 5.3 mmol/L [facility] Chloride 106 98 - 110 mmol/L [facility] CO2 29 20 - 32 mmol/L [facility] Calcium 9.4 8.6 - 10.2 mg/dL [facility] Comment: Test Performed at: [facility] [address] [place] [address] ISAEL LEON MD 05/29/2024 10:0 8 AM BRICK TOSSER 05/29/2024 10:10 AM BRICK TOSSER us Yaron Barahona MD LAB - CHEMISTRY ORDERABLES Final Result Performing Organization Address [facility] de Phone Number [address] [address] * PHOSPHORUS BLOOD (05/29/2024 10:08 AM BRICK TOSSER) Only the most recent of2 resultswithin the time period is included. Phosphorus 3.2 2.5 - 4.5 mg/dL [facility] Comment: Test Performed at: [address] [address] ISAEL LEON MD 05/29/2024 10:0 8 AM BRICK TOSSER 05/29/2024 10:10 AM BRICK TOSSER Yaron Barahona MD LAB - CHEMISTRY ORDERABLES Final Result Performing Organization Address [facility] de Phone Number [address] [address] * MAGNESIUM BLOOD (05/29/2024 10:08 AM BRICK TOSSER) Only the most recent of2 resultswithin the time period is included. Pathologist [facility] Magnesium 2.0 1.5 - 2.5 mg/dL [facility] Comment: Test Performed at: [facility] [address] [address] ISAEL LEON MD 05/29/2024 10:0 8 AM BRICK TOSSER 05/29/2024 10:10 AM BRICK TOSSER us Yaron Barahona MD LAB - CHEMISTRY ORDERABLES Final Result Performing Organization Address [facility] de Phone Number [address] [address] * (ABNORMAL) CALCIUM IONIZED WHOLE BLOOD (05/25/2024 5:17 AM BRICK TOSSER) Calcium Ionized 1.14 mmol/L 05/25/2024 5:30 AM [facility] pH 7.43 7.35 - 7.45 pH 05/25/2024 5:30 AM [facility] Ionized Calcium pH Adjusted 1.15(L) 1.19 - 1.34 mmol/L 05/25/2024 5:30 AM [facility] Blood BLOOD SPECIMEN / Unknown Venipuncture / Unknown 05/25/2024 5:17 AM BRICK TOSSER 05/25/2024 5:24 AM BRICK TOSSER us Jaqui Angel MD LAB - CHEMISTRY ORDERA BLES Final Result Performing Organization Address City/[facility]/ZIP Co de Phone Number [address] [address], [facility] [phone] * PTH INTACT W/O CALCIUM (05/25/2024 5:17 AM BRICK TOSSER) PTH Intact 61.2 8.0 - 77.0 pg/mL 05/25/2024 6:05 AM [facility] Blood BLOOD SPECIMEN / Unknown Venipuncture / Unknown 05/25/2024 5:17 AM BRICK TOSSER 05/25/2024 5:29 AM BRICK TOSSER us Jaqui Angel MD LAB - CHEMISTRY ORDERA BLES Final Result Performing Organization Address [facility] de Phone Number [address] [address], [facility] [phone] * VITAMIN D 25-HYDROXY (05/25/2024 5:17 AM BRICK TOSSER) Vitamin D, 25 Hydroxy 76.0 30.0 - 80.0 ng/mL 05/25/2024 6:19 AM [facility] Comment: The recommendations for 25-Hydroxy Vitamin D clinical decision points are as follows: Deficient: <20.0 ng/mL Insufficient: 20.0 - 29.9 ng/mL Sufficient: 30.0 - 100.0 ng/mL Potential Toxicity: >100 ng/mL Reference: The Endocrine Society Clinical Practice Guidelines. 2011 If the 25-Hydroxy Vitamin D results are inconsitent with clinical evidence, it is recommended that follow-up testing using a method such as LC/MS/MS be performed to confirm the result. Blood BLOOD SPECIMEN / Unknown Venipuncture / Unknown 05/25/2024 5:17 AM BRICK TOSSER 05/25/2024 5:29 AM BRICK TOSSER us Jaqui Angel MD LAB - CHEMISTRY ORDERA BLES Final Result [facility] [address] [place] [address], [facility] [phone] * (ABNORMAL) CBC W AUTO DIFFERENTIAL (05/25/2024 5:17 AM BRICK TOSSER) Pathologist [facility] WBC 6.3 4.0 - 10.7 x10E9/L 05/25/2024 5:34 AM [facility] RBC Count 3.83(L) 3.90 - 5.20 x10E12/L 05/25/2024 5:34 AM [facility] Hemoglobin 12.0 11.9 - 15.8 g/dL 05/25/2024 5:34 AM [facility] Hematocrit 34.2(L) 34.8 - 46.1 % 05/25/2024 5:34 AM [facility] MCV 89.3 80.0 - 98.0 fL 05/25/2024 5:34 AM [facility] MCH 31.3 26.7 - 33.6 pg 05/25/2024 5:34 AM [facility] MCHC 35.1 31.7 - 36.3 g/dL 05/25/2024 5:34 AM [facility] RDW-CV 12.3 11.3 - 14.8 % 05/25/2024 5:34 AM [facility] Platelet Count 193 150 - 420 x10E9/L 05/25/2024 5:34 AM [facility] MPV 10.2 7.8 - 11.4 fL 05/25/2024 5:34 AM [facility] Neutrophil % 65.1 41.0 - 74.0 % 05/25/2024 5:34 AM [facility] Lymphocyte % 21.6 17.0 - 47.0 % 05/25/2024 5:34 AM [facility] Monocyte % 7.7 3.0 - 11.0 % 05/25/2024 5:34 AM [facility] Eosinophil % 4.0 0.0 - 7.0 % 05/25/2024 5:34 AM [facility] Basophil % 1.1 0.0 - 1.6 % 05/25/2024 5:34 AM [facility] Immature Granulocytes % 0.5 0.0 - 1.0 % 05/25/2024 5:34 AM [facility] Neutrophil Absolute 4.07 1.60 - 7.50 x10E9/L 05/25/2024 5:34 AM [facility] Lymphocyte Absolute 1.35 1.00 - 4.40 x10E9/L 05/25/2024 5:34 AM [facility] Monocyte Absolute 0.48 0.15 - 1.00 x10E9/L 05/25/2024 5:34 AM [facility] Eosinophil Absolute 0.25 0.00 - 0.60 x10E9/L 05/25/2024 5:34 AM [facility] Basophil Absolute 0.07 0.00 - 0.13 x10E9/L 05/25/2024 5:34 AM [facility] Blood BLOOD SPECIMEN / Unknown Venipuncture / Unknown 05/25/2024 5:17 AM BRICK TOSSER 05/25/2024 5:29 AM [facility] Jaqui Angel MD LAB - HEMATOLOGY ORDER NEHEMIAS Final Result Performing Organization Address [facility]/State/ZIP Co de Phone Number [facility] [address] [place] [address], [facility] [phone] from Last 3 Months Insurance [employer] Advance Directives * Full Code (Latest Code Status on File) Date Activated Date Inactivated Comments 05/23/2024 3:27 PM 05/25/2024 6:04 PM Care Teams Gas Tender Relationship Specialty Start Date End Date Nilton Mckinney PCP - General 06/21/24
--- OUTSIDE RECORDS SUMMARY | 2024-08-22 07:14 | XMS_ITS | Encounter Summary ---
Author Organization [facility] Health Address [address] [facility] [place] [address] Care Team Providers Care Knife Cutter Name Role Phone Nilton Mckinney Primary Care Provider Unavailabl e Encounter Details Date Type Department Care Team (Late st Contact Info) Description 08/17/2024 Results Follow-Up [facility] - Endocrinology [address] [place] [address], [place] [address] Pascual Parker MD [address] [place] [address] [place] [phone] Social History Tobacco Use Types Packs/Day Years Used Date Smoking Tobacco: Never Smokeless Tobacco: Never Alcohol Use Standard Drinks/Week Comments Never 0 [...] and heating? Not hard at all 05/23/2024 [facility] [place] of Occupat ional Health - Occupational Stress [...] any time in the past 12 m [facility], were you homeless or living in a senior care (including now)? No 05/23/2024 Comments No Sex and Gender Information Value Date Recorded Sex Assigned at Not on file Legal Sex Female 1:56 PM CDT Gender Identity Not on file Sexual Orientation Not on file documented as of this encounter Functional Status * Is person deaf or have serious hearing difficulty? Answer Date of Assessment Author No 05/24/2024 12:28 PM Carla Espino, RN * Is person blind or have serious difficulty seeing? Answer Date of Assessment Author No 05/24/2024 12:28 PM Carla Espino, RN * Does person have serious difficulty walking/climbing stairs? Answer Date of Assessment Author No 05/24/2024 12:28 PM Carla Espino, RN * Does person have difficulty dressing/bathing? Answer Date of Assessment Author No 05/24/2024 12:28 PM Carla Espino, RN * Does person have difficulty doing errands alone? Answer Date of Assessment Author No 05/24/2024 12:28 PM Carla Espino, RN documented as of this encounter Mental Status * Does person have difficulty concentrating/remembering/making decisions? Answer Entry Date Author No 05/24/2024 12:28 PM LIFE MANAGEMENT TEACHER Carla Díaz RN documented in this encounter Plan of Treatment Upcoming Encounters Date Type Department Care Team (Late st Contact Info) Description 10/11/2024 9:20 AM CDT Office Visit [facility] - Endocrinology [address] [place] [address], [place] [address] Pascual Parker MD [address] [place] [address] [place] [address] documented as of this encounter Visit Diagnoses Not on filedocumented in this encounter Care Teams Knife Cutter Relationship Specialty Start Date End Date Nilton Mckinney PCP - General 06/21/24 documented as of this encounter
--- OUTSIDE RECORDS SUMMARY | 2024-08-22 07:14 | XMS_ITS | Encounter Summary ---
Author Organization [facility] Address [address] [place] [address] Care Team Providers Care Physician Internist Name Role Phone FayeNilton Primary Care Provider Unavailabl e Encounter Details Date Type Department Care Team (Late st Contact Info) Description 08/16/2024 Orders Only [facility] - Endocrinology [address] [place] [address], [place] [address] Pascual Parker MD [address] [place] [address] [place] [id number] Hypokalemia Social History Tobacco Use Types Packs/Day Years [...] and heating? Not hard at all 05/23/2024 [facility] Occup[facility] ional [facility] - Occupational Stress [...] any time in the past [address] [facility], were you homeless or living in a halfway (including now)? No 05/23/2024 Comments No Sex [...] Entry Date Author No 05/24/2024 12:28 PM APPLICATION SUPPORT Carla Díaz RN documented in this encounter Plan of Treatment Upcoming Encounters Date Type Department Care Team (Late st Contact Info) Description 10/11/2024 9:20 AM CDT Office Visit [facility] - Endocrinology [address] [place] [address], [place] [address] Pascual Parker MD [address] [place] [address] [place] [address] documented as of this encounter Visit Diagnoses Diagnosis Hypokalemia Hypopotassemia documented in this encounter Care Teams Physician Internist Relationship Specialty Start Date End Date Nilton Mckinney PCP - General 06/21/24 documented as of this encounter
== END 2024-08-22 07:11 | disposition home or self-care (01) ==
PROVIDERS: PCP Student in an Organized Health Care Education/Training Program; Visit Provider Obstetrics & Gynecology
DX: Z12.31 Encounter for screening mammogram for malignant neoplasm of breast (principal)
CPT/HCPCS: 77063; 77067

== ENCOUNTER 2024-10-19 08:02 | Emergency (ER) | payer OTHER, SELFPAY ==
[2024-10-19 08:17] VITALS: BP 155/86; PULSE 92; RESP 16; TEMP 36.8; O2SAT 100
--- NOTE | 2024-10-19 09:32 | ED.SKABFB ---
HPI - Skin/Abscess/Foreign Bdy General Chief complaint: Skin/Abscess/Foreign Body Stated complaint: PAINFUL RASH Time Seen by Provider: 10/19/24 08:15 Source: patient and RN notes reviewed Mode of arrival: ambulatory Limitations: no limitations History of Present Illness HPI narrative: 49-year-old female presents [facility] Care complaining of painful rash her abdomen started yesterday. Patient denies any fevers, body aches, chills, headaches, fatigue or malaise. Patient says she has a history of chickenpox. Patient tried hydrocortisone cream without relief. Patient denies any itchiness. Patient has a history of adrenal insufficiency. Patient believes she may have a rash on her back as well. Related Data Home Medications ?Medication ?Instructions ?Recorded ?Confirmed ?Last Taken ?Type norgestimate-ethinyl estradiol 1 tablet PO DAILY 03/01/19 10/19/24 Unknown History 0.18mg/0.215mg/0.25mg-0.035mg(28)tablet (Ortho Tri-Cyclen (28)) hydroxychloroquine 200 mg tablet 200 mg PO DAILY 09/25/23 10/19/24 Unknown History amlodipine 5 mg tablet mg 06/01/24 Unknown History hydrocortisone 10 mg tablet mg 06/01/24 Unknown History oxycodone 5 mg tablet mg 06/01/24 Unknown History tamsulosin 0.4 mg capsule mg PO 06/01/24 Unknown History Allergies Allergy/AdvReac Type Severity Reaction Status Date / Time Penicillins Allergy Unknown Joint Pain Verified 10/19/24 08:47 Review of Systems Review of Systems: CONSTITUTIONAL: Denies fever, chills, or sweats. EYES: Denies visual changes, redness, or discharge. ENT: Denies rhinorrhea, congestion, sore throat, or otalgia. CARDIOVASCULAR: Denies chest pain, palpitations, or edema. RESPIRATORY: Denies cough or dyspnea. GASTROINTESTINAL: Denies abdominal pain, nausea, vomiting, or diarrhea. GENITOURINARY: Denies dysuria or hematuria. SKIN: Positive for rash. Negative for itching. MUSCULOSKELETAL: Denies back pain, joint pain, or myalgia. NEUROLOGIC: Denies headache, numbness, or weakness. PSYCHIATRIC: Denies anxiety or depression. All other systems reviewed are negative, except as documented in HPI. [facility] Past Medical History Medical History Anxiety Chronic hypokalemia Adrenal adenoma Lupus Hypothyroidism Surgical History Surgical History Hx of thyroidectomy (~2014) left thyroidectomy Family History Family History Mother Depression Hypertension Family history of allergic disorder Family history of hypothyroidism Family history of thyroid disease Father Family history of malignant neoplasm of thyroid, Onset Age: 70 Family history of malignant neoplasm, Onset Age: 70 Social History Social History Social History: Single. 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 Lives in home. Daughter lives with pt. Never alcohol or drug use. Caffeine-none Smoking status: Never smoker Alcohol intake: never Substance use: never Substance use type: does not use Do You Feel Safe in your Home?: Yes Lack of Transportation: No Lack of Food: Never True Current Housing: I Have Housing Concerned About Future Housing: No Difficulty Paying Gas/Electric Bills: No Difficulty Paying for Meds: No Currently Unemployed: No Education: Master's Degree or Higher Difficulty w/ Childcare or Family Care: No Living arrangements: with family Occupation/Education: occupation Additional occupation/education comments: Pharmacist Gender identity (if verbalized by the patient): Female Spiritual care concerns: No Agree to blood products: Yes Comments At the time of my signature, I reviewed and agree with the nursing past medical, surgical, social, and family history. There is no relevant family history pertinent to the patient complaint. Exam Narrative: GENERAL: This is a well-nourished, well-developed adult, in no apparent distress. They are non ill-appearing, nontoxic appearing. HEAD: normocephalic, atraumatic. EYES: Sclera clear/white. Conjunctiva normal. Vision is grossly intact. Extraocular movements intact EARS: External ears normal, Hearing grossly intact. NOSE: External nose normal THROAT: Mucous membranes moist, NECK: Neck supple, CARDIOVASCULAR: Regular rate and rhythm RESPIRATORY: Respiratory rate normal, respiratory effort nonlabored, no respiratory distress SKIN: Erythematous papular and vesicular rash that is grouped and follows a dermatome on patient's right lower abdomen near the umbilicus. There is a small grouped erythematous papular and vesicular rash patient's right mid lateral back. No exudate, no surrounding cellulitis, no area of fluctuance, no induration. NEURO: awake, alert, and oriented to person, place and time. There were no obvious focal neurologic abnormalities. EXTREMITIES: No joint tenderness, effusion, or edema noted. Course Course Emergency Course: Portions of this record may have been created with voice recognition software Level of Care: Express Care Visit Vital Signs Vital signs: Vital Signs Temperature 98.3 F 10/19/24 08:17 Pulse Rate 92 10/19/24 08:17 Respiratory Rate 16 10/19/24 08:17 Blood Pressure 155/86 H 10/19/24 08:17 Pulse Oximetry 100 10/19/24 08:17 Temperature 98.3 F 10/19/24 08:17 Pulse Rate 92 10/19/24 08:17 Respiratory Rate 16 10/19/24 08:17 Blood Pressure 155/86 H 10/19/24 08:17 Pulse Oximetry 100 10/19/24 08:17 Reviewed MDM - Skin/Abscess/Foreign Bdy MDM Narrative Medical decision making narrative: Patient's symptoms consistent with herpes zoster. There is a focal lesion on patient's it appears to follow the same dermatome. Will treat with valacyclovir. Advised patient to contact labeling machine operator about stress dosing. Discussed physical exam findings. Advised supportive measures and signs/symptoms to go to the ER. Pt is appropriate for outpt treatment and f/u. Differential Diagnosis Differential diagnosis: Likely herpes zoster, eczema and contact dermatitis Critical Care Time Critical Care Time Critical Care Time: No Discharge Plan Discharge Clinical Impression: Herpes zoster Qualifiers: Herpes zoster complications: without complications Qualified Code(s): B02.9 - Zoster without complications Patient Disposition: Home Condition: Stable Instructions: Shingles (ED) Additional Instructions: Please keep the rash cover to reduce the risk of spreading the virus to others. The rash is no longer infectious when the lesions have crusted. Please use the antiviral as directed. Follow-up with PCP in 3-5 days. Please go to the ER for any severe pain, difficulty breathing, rash develops new her eyes or ears, any other concerns. Patient Language: Iranian Prescriptions: New valacyclovir 1 gram tablet 1,000 mg PO TID 7 Days Qty: 21 0RF No Action amlodipine 5 mg tablet tamsulosin 0.4 mg capsule PO hydrocortisone 10 mg tablet oxycodone 5 mg tablet triamcinolone acetonide 0.1 % cream 1 applic topical BID 7 Days Qty: 30 0RF famotidine [Pepcid] 40 mg tablet 40 mg PO DAILY 10 Days Qty: 10 0RF norgestimate-ethinyl estradiol [Ortho Tri-Cyclen (28)] 0.18/0.215/0.25 mg-35 mcg (28) tablet 1 tablet PO DAILY hydroxychloroquine 200 mg tablet 200 mg PO DAILY metoprolol succinate 25 mg tablet extended release 24 hr 25 mg PO DAILY Qty: 90 0RF amlodipine 2.5 mg tablet 2.5 mg PO DAILY Qty: 90 3RF cholecalciferol (vitamin D3) 1,250 mcg (50,000 unit) tablet 1,250 mcg PO WEEKLY Qty: 8 0RF levothyroxine 112 mcg tablet See Rx Instructions .ROUTE .COMPLEX Qty: 90 1RF Dose Instruction: TAKE 1 TABLET BY MOUTH EVERY DAY Rx Instructions: TAKE 1 TABLET BY MOUTH EVERY DAY scopolamine base 1 mg over 3 days patch 3 day 1 patch transdermal Q3D PRN (Reason: motion sickness) Qty: 10 0RF azithromycin 250 mg tablet See Rx Instructions PO .COMPLEX Qty: 6 0RF Rx Instructions: For 250 mg dose pack: take 500 mg today (day 1), then 250 mg for 4 days (days 2-5) PO potassium chloride 10 mEq tablet extended release See Rx Instructions .ROUTE .COMPLEX Qty: 270 0RF Dose Instruction: TAKE 2 TABLETS BY MOUTH IN THE MORNING AND 1 TABLET IN THE EVENING. Rx Instructions: TAKE 2 TABLETS BY MOUTH IN THE MORNING AND 1 TABLET IN THE EVENING. Follow-up/Referrals: Nilton Mckinney APRN [Primary Care Provider] - Time of Disposition: 08:29
== END 2024-10-19 08:38 | disposition home or self-care (01) ==
PROVIDERS: PCP Student in an Organized Health Care Education/Training Program
DX: B02.9 Zoster without complications (principal); E03.9 Hypothyroidism, unspecified
CPT/HCPCS: 99213; G0463